=== PATIENT | female | born 1975 | race American Indian/Alaskan Native ===

== ENCOUNTER 2017-07-24 04:26 | Inpatient (IN) | payer OTHER ==
[2017-07-24] MEDS ORDERED: Sodium Chloride 0.9% 1,000 ML IV ONE (04:35)
[2017-07-24] MEDS ORDERED: Morphine 2 MG/ML Syringe IVPUSH ONE (04:35)
[2017-07-24] MEDS ORDERED: Ondansetron 4 MG/2 ML SDV IVPUSH ONE (04:37)
--- NOTE | 2017-07-24 04:37 | EDM.PDOC ---
ED HPI GENERAL MEDICAL PROBLEM - General Chief Complaint: Abdominal Pain Stated Complaint: STOMACH PAIN Time Seen by Provider: 07/24/17 04:36 Source of Information: Reports: Patient - History of Present Illness INITIAL COMMENTS - FREE TEXT/NARRATIVE: HISTORY AND PHYSICAL: History of present illness: []Patient presents with diffuse abdominal pain she rates 10 out of 10 with a focus in the left lower quadrant no fever nausea vomiting chills sweats but patient is unable to get comfortable she's had 2 mg morphine IV along with 0.5 mg of Dilaudid 2 mg with improvement but still has continued pain Will admit for inpatient treatment of diverticulitis diagnosed on CT or confirmed on CT Review of systems: As per history of present illness and below otherwise all systems reviewed and negative. Past medical history: As per history of present illness and as reviewed below otherwise noncontributory. Surgical history: As per history of present illness and as reviewed below otherwise noncontributory. Social history: No reported history of drug or alcohol abuse. Family history: As per history of present illness and as reviewed below otherwise noncontributory. Physical exam: HEENT: Atraumatic, normocephalic, pupils reactive, negative for conjunctival pallor or scleral icterus, mucous membranes moist, throat clear, neck supple, nontender, trachea midline. Lungs: Clear to auscultation, breath sounds equal bilaterally, chest nontender. Heart: S1S2, regular, negative for clicks, rubs, or JVD. Abdomen: Soft, nondistended, nontender. Negative for masses or hepatosplenomegaly. Negative for costovertebral tenderness. Pelvis: Stable nontender. Genitourinary: Deferred. Rectal: Deferred. Extremities: Atraumatic, negative for cords or calf pain. Neurovascular unremarkable. Neuro: Awake, alert, oriented. Cranial nerves II through XII unremarkable. Cerebellum unremarkable. Motor and sensory unremarkable throughout. Exam nonfocal. Diagnostics: []Lab as below CT abdomen pelvis with Therapeutics: []1 L normal saline bolus Morphine 2 mg IV Zofran 8 mg IV Dilaudid 2 mg IV Cipro 400 mg IV Flagyl 500 mg IV Admit to Dr. Kumar Impression: []Diverticulitis Definitive disposition and diagnosis as appropriate pending reevaluation and review of above. Abdomen Pain Score (Numeric/FACES): 10 - Related Data Allergies Allergy/AdvReac Type Severity Reaction Status Date / Time No Known Allergies Allergy Verified 07/24/17 04:37 Home Meds: Home Meds . [No Known Home Meds] 07/24/17 [History] ED ROS GENERAL - Review of Systems Review Of Systems: ROS reveals no pertinent complaints other than HPI. ED EXAM, GENERAL - Physical Exam Exam: See Below Course - Vital Signs Last Recorded V/S: Last Vital Signs Temp 36.6 C 07/24/17 04:30 Pulse 76 07/24/17 04:30 Resp 18 07/24/17 04:30 BP 126/68 07/24/17 04:30 Pulse Ox 98 07/24/17 04:30 - Orders/Labs/Meds Orders: Active Orders 24 hr Category Date Time Status Abdomen Pelvis w wo Cont [CT] Stat Exams 07/24/17 04:35 Taken Labs: Laboratory Tests 07/24/17 07/24/17 07/24/17 Range/Units 04:30 04:30 04:30 WBC 12.92 H (4.0-11.0) K/uL RBC 4.53 (4.30-5.90) M/uL Hgb 14.4 (12.0-16.0) g/dL Hct 39.6 (36.0-46.0) % MCV 87.4 (80.0-98.0) fL MCH 31.8 (27.0-32.0) pg MCHC 36.4 (31.0-37.0) g/dL RDW Std Deviation 39.6 (28.0-62.0) fl RDW Coeff of Nessa 12 (11.0-15.0) % Plt Count 276 (150-400) K/uL MPV 10.40 (7.40-12.00) fL Neut % (Auto) 73.0 (48.0-80.0) % Lymph % (Auto) 19.0 (16.0-40.0) % [place] % (Auto) 7.3 (0.0-15.0) % Eos % (Auto) 0.5 (0.0-7.0) % Baso % (Auto) 0.2 (0.0-1.5) % Neut # (Auto) 9.4 H (1.4-5.7) K/uL Lymph # (Auto) 2.5 H (0.6-2.4) K/uL [place] # (Auto) 0.9 H (0.0-0.8) K/uL Eos # (Auto) 0.1 (0.0-0.7) K/uL Baso # (Auto) 0.0 (0.0-0.1) K/uL Nucleated RBC % 0.0 /100WBC Nucleated RBCs # 0 K/uL Sodium 140 (136-146) mmol/L Potassium 3.8 (3.5-5.1) mmol/L Chloride 111 H (98-110) mmol/L Carbon Dioxide 18 L (21-31) mmol/L BUN 10 (6.0-23.0) mg/dL Creatinine 0.8 (0.6-1.5) mg/dL Est Cr Clr Drug Dosing 90.53 mL/min Estimated GFR (MDRD) > 60.0 ml/min Glucose 94 (60-110) mg/dL Calcium 9.6 (8.8-10.8) mg/dL Total Bilirubin 0.9 (0.1-1.5) mg/dL AST 19 (5-40) IU/L ALT 28 (8-54) IU/L Alkaline Phosphatase 80 (40-150) Troponin I < 0.10 (0.0-0.29) NG/ML Total Protein 7.0 (6.0-8.0) g/dL Albumin 3.8 (3.5-5.0) g/dL Globulin 3.2 (2.0-3.5) g/dL Albumin/Globulin Ratio 1.2 L (1.3-2.8) Amylase 104 H (10-90) U/L Lipase 12 (7-80) U/L Urine Color Urine Appearance Urine pH (5.0-8.0) Ur Specific [place] (1.001-1.035) Urine Protein (NEGATIVE) mg/dL Urine Glucose (UA) (NEGATIVE) mg/dL Urine Ketones (NEGATIVE) mg/dL Urine Occult Blood (NEGATIVE) Urine Nitrite (NEGATIVE) Urine Bilirubin (NEGATIVE) Urine Urobilinogen (<2.0) EU/dL Ur Leukocyte Esterase (NEGATIVE) Urine RBC (0-2/HPF) Urine WBC (0-5/HPF) Ur Epithelial Cells (NONE-FEW) Urine Bacteria (NEGATIVE) 10/04/17 Range/Units 05:10 WBC (4.0-11.0) K/uL RBC (4.30-5.90) M/uL Hgb (12.0-16.0) g/dL Hct (36.0-46.0) % MCV (80.0-98.0) fL MCH (27.0-32.0) pg MCHC (31.0-37.0) g/dL RDW Std Deviation (28.0-62.0) fl RDW Coeff of [place] (11.0-15.0) % Plt Count (150-400) K/uL MPV (7.40-12.00) fL Neut % (Auto) (48.0-80.0) % Lymph % (Auto) (16.0-40.0) % [place] % (Auto) (0.0-15.0) % Eos % (Auto) (0.0-7.0) % Baso % (Auto) (0.0-1.5) % Neut # (Auto) (1.4-5.7) K/uL Lymph # (Auto) (0.6-2.4) K/uL [place] # (Auto) (0.0-0.8) K/uL Eos # (Auto) (0.0-0.7) K/uL Baso # (Auto) (0.0-0.1) K/uL Nucleated RBC % /100WBC Nucleated RBCs # K/uL Sodium (136-146) mmol/L Potassium (3.5-5.1) mmol/L Chloride (98-110) mmol/L Carbon Dioxide (21-31) mmol/L BUN (6.0-23.0) mg/dL Creatinine (0.6-1.5) mg/dL Est Cr Clr Drug Dosing mL/min Estimated GFR (MDRD) ml/min Glucose (60-110) mg/dL Calcium (8.8-10.8) mg/dL Total Bilirubin (0.1-1.5) mg/dL AST (5-40) IU/L ALT (8-54) IU/L Alkaline Phosphatase (40-150) Troponin I (0.0-0.29) NG/ML Total Protein (6.0-8.0) g/dL Albumin (3.5-5.0) g/dL Globulin (2.0-3.5) g/dL Albumin/Globulin Ratio (1.3-2.8) Amylase (10-90) U/L Lipase (7-80) U/L Urine Color YELLOW Urine Appearance CLEAR Urine pH 8.0 (5.0-8.0) Ur Specific [place] 1.010 (1.001-1.035) Urine Protein NEGATIVE (NEGATIVE) mg/dL Urine Glucose (UA) NEGATIVE (NEGATIVE) mg/dL Urine Ketones NEGATIVE (NEGATIVE) mg/dL Urine Occult Blood NEGATIVE (NEGATIVE) Urine Nitrite NEGATIVE (NEGATIVE) Urine Bilirubin NEGATIVE (NEGATIVE) Urine Urobilinogen 0.2 (<2.0) EU/dL Ur Leukocyte Esterase NEGATIVE (NEGATIVE) Urine RBC 0-1 (0-2/HPF) Urine WBC 0-2 (0-5/HPF) Ur Epithelial Cells FEW (NONE-FEW) Urine Bacteria FEW (NEGATIVE) Meds: Medications Discontinued Medications Generic Name Dose Route Start Last Admin Trade Name Freq PRN Reason Stop Dose Admin Hydromorphone HCl 0.5 mg 07/24/17 04:52 07/24/17 04:58 Dilaudid IM 07/24/17 04:53 0.5 mg ONETIME ONE Administration Hydromorphone HCl 0.5 mg 07/24/17 05:34 07/24/17 05:37 Dilaudid IVPUSH 07/24/17 05:35 0.5 mg ONETIME ONE Administration Hydromorphone HCl 1 mg 07/24/17 06:25 07/24/17 06:30 Dilaudid IVPUSH 07/24/17 06:26 1 mg ONETIME ONE Administration Sodium Chloride 1,000 mls @ 999 mls/hr 07/24/17 04:35 07/24/17 04:40 Normal Saline IV 07/24/17 05:35 999 mls/hr STAT ONE Administration Iopamidol 100 ml 07/24/17 05:03 07/24/17 05:33 Isovue Multipack-370 (76%) IVPUSH 07/24/17 05:04 100 ml ONETIME STA Administration Morphine Sulfate 2 mg 07/24/17 04:35 07/24/17 04:40 Morphine IVPUSH 07/24/17 04:36 2 mg ONETIME ONE Administration Ondansetron HCl 8 mg 07/24/17 04:37 07/24/17 04:46 Zofran IVPUSH 07/24/17 04:38 8 mg ONETIME ONE Administration Departure - Departure Time of Disposition: 06:31 Disposition: Admitted As Inpatient 64 Condition: Fair Clinical Impression: Diverticulitis - Discharge Information Referrals: PCP,None [Primary Care Provider] - Forms: ED Department Discharge - My Orders Last 24 Hours: My Active Orders 07/24/17 04:35 Abdomen Pelvis w wo Cont [CT] Stat - Assessment/Plan Last 24 Hours: My Active Orders 07/24/17 04:35 Abdomen Pelvis w wo Cont [CT] Stat
[2017-07-24] MEDS ORDERED: HYDROmorphone 1 MG/ML Syringe IM ONE (04:52)
[2017-07-24] MEDS ORDERED: Iopamidol 755 MG/ML 500 ML Multipack Bottle IVPUSH STA (05:03)
[2017-07-24 05:26] LABS: CHLORIDE,CL 111 mmol/L (98-110); SODIUM,NA 140 mmol/L (136-146)
[2017-07-24] MEDS ORDERED: HYDROmorphone 1 MG/ML Syringe IVPUSH ONE ×2 (05:34→06:25)
[2017-07-24] MEDS ORDERED: metroNIDAZOLE/Normal Saline 500 MG in Premix Bag 1 BAG IV ONE (06:33)
[2017-07-24] MEDS: Sodium Chloride 0.9% 1,000 ML IV SCH ×2 (06:37→17:35)
[2017-07-24] MEDS ORDERED: Ciprofloxacin in D5W 400 MG in Premix Bag 1 BAG IV SCH ×4 (06:45→18:00)
[2017-07-24] MEDS: HYDROmorphone 2 MG/ML Syringe IVPUSH PRN ×2 (09:40→12:22)
--- NOTE | 2017-07-24 09:54 | PCM.HP ---
H&P History of Present Illness - General Date of Service: 07/24/17 Admit Problem/Dx: Admission Diagnosis/Problem Admission Diagnosis/Problem Diverticulitis Source of Information: Patient History Limitations: Reports: No Limitations - History of Present Illness Initial Comments - Free Text/Narative: This 42 year old female with little pmh presented to the ED with a 3 day history of abdominal pain, which worsened significantly overnight. She reports she has been having some cramping pain for 6 months or so but recently this worsened. She describes this pain as cramping and sharp to lower abdomen. She denies fevers at home, no dyspnea or chest pain. No black or bloody BMs, no change in bowel habits and no urinary symptoms. She denies having history of diverticulosis, but knows family members have it. She has never had a colonoscopy. She does smoke 1/2 ppd, denies alcohol use or recreational drug use. In the ED leukocytosis noted at 12,920, amlyase 104, lipase 12. Ua negative. She was afebrile with stable VS. Abd/pelvis CT revealed sigmoid diverticulitis no perforation note.d. She was treated with pain medications along with Flagyl and Ciprofloxacin. She was admitted for diverticulitis. Abdomen Pain Score (Numeric/FACES): 8 - Related Data Allergies/Adverse Reactions: Allergies Allergy/AdvReac Type Severity Reaction Status Date / Time No Known Allergies Allergy Verified 07/24/17 04:37 Home Medications: Home Meds . [No Known Home Meds] 07/24/17 [History] Past Medical History HEENT History: Reports: None Cardiovascular History: Reports: None. Denies: Afib, Blood Clots/VTE/DVT, CAD, High Cholesterol, Hypertension, [place] Respiratory History: Reports: None. Denies: COPD, PE Gastrointestinal History: Reports: None. Denies: GERD, GI Bleed Genitourinary History: Reports: None. 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: , Other (See Below) Other OB/BYN History: hx of cervical precancerous cells Musculoskeletal History: Reports: None Neurological History: Reports: None Psychiatric History: Reports: None Endocrine/Metabolic History: Reports: None, Obesity/BMI 30+ Hematologic History: Reports: None Immunologic History: Reports: None Oncologic (Cancer) History: Reports: None Dermatologic History: Reports: None - Infectious Disease History Infectious Disease History: Reports: Chicken Pox - Past Surgical History Head Surgeries/Procedures: Reports: None HEENT Surgical History: Reports: LASIK Social & Family History - Family History Family Medical History: Noncontributory - Tobacco Use Smoking Status *Q: Current Every Day Smoker Years of Tobacco use: 25 Packs/Tins Daily: 0.5 Second Hand Smoke Exposure: Yes - Caffeine Use Caffeine Use: Reports: Coffee - Recreational Drug Use Recreational Drug Use: No - Living Situation & Occupation Living situation: Reports: Occupation: Employed H&P Review of Systems - Review of Systems: Review Of Systems: See Below General: Reports: No Symptoms. Denies: Fever, Chills, Malaise Pulmonary: Reports: No Symptoms. Denies: Shortness of Breath Cardiovascular: Reports: No Symptoms. Denies: Chest Pain Gastrointestinal: Reports: Abdominal Pain, Distension, Flatus, Nausea. Denies: Black Stool, Bloody Stool, Constipation, Diarrhea, Stool Incontinence, Vomiting Genitourinary: Reports: No Symptoms. Denies: Dysuria, Frequency, Burning, Urgency Musculoskeletal: Reports: No Symptoms. Denies: Neck Pain Skin: Reports: No Symptoms Psychiatric: Reports: No Symptoms. Denies: Confusion Exam - Exam Exam: See Below - Vital Signs Vital Signs: Last Vital Signs Temp 97.6 F 07/24/17 08:05 Pulse 57 L 07/24/17 08:05 Resp 18 07/24/17 08:05 BP 134/89 07/24/17 08:05 Pulse Ox 100 07/24/17 08:05 Weight: 90 kg - Exam General: Alert, Oriented, Cooperative, Other (Noted to be very uncomfortable and moving in pain. Nurse bringing medication in. ) HEENT: Conjunctiva Clear, Posterior Pharynx Clear, Pupils Reactive. No: Mucosa Moist & [place] (dry) Neck: Supple, Trachea Midline, 2 Lungs: Clear to Auscultation, Normal Respiratory Effort Cardiovascular: Regular Rate, Regular Rhythm GI/Abdominal Exam: Soft, No Distention, No Mass, Tender (lower abdomen R and L) , Abnormal Bowel Sounds (hypoactive) Extremities: Normal Inspection, Normal Range of Motion, Non-Tender, No Pedal Edema, Normal Capillary Refill Neuro Extensive - Mental Status: Alert, Oriented x3, Normal Mood/Affect, Normal Cognition Psychiatric: Alert, Normal Affect, Normal Mood - Patient Data Result Diagrams: 07/24/17 04:30 07/24/17 04:30 *Q Meaningful Use (ADM) - VTE *Q VTE Criteria *Q: - VTE Risk Assess *Q Each Risk Factor Represents 1 Point: Age 41 - 59 years Total Score 1 Point Risk Factors: 1 Each Risk Factor Represents 2 Points: None Total Score 2 Point Risk Factors: 0 Each Risk Factor Represents 3 Points: None Total Score 3 Point Risk Factors: 0 Each Risk Factor Represents 5 Points: None Total Score 5 Point Risk Factors: 0 Venous Thromboembolism Risk Factor Score *Q: 1 - Stroke *Q Stroke Criteria *Q: - AMI *Q AMI Criteria *Q: - Problem List (1) Sigmoid diverticulitis SNOMED Code(s): 069274057 ICD Code: K57.32 - DVTRCLI OF LG INT W/O PERFORATION OR ABSCESS W/O BLEEDING Status: Acute Current Visit: Yes (2) Smoker SNOMED Code(s): 38656643 ICD Code: F17.200 - NICOTINE DEPENDENCE, UNSPECIFIED, UNCOMPLICATED Status : Chronic Current Visit: Yes Problem List Initiated/Reviewed/Updated: Yes Orders Last 24hrs: Active Orders 24 hr Category Date Time Status Intake and Output [RC] QSHIFT Care 07/24/17 09:49 Ordered Oxygen Therapy [RC] PRN Care 07/24/17 09:49 Ordered Up With Assistance [RC] ASDIRECTED Care 07/24/17 09:49 Ordered VTE/DVT Education [RC] PER UNIT ROUTINE Care 07/24/17 09:49 Ordered Vital Signs [RC] Q4H Care 07/24/17 09:49 Ordered Nothing Per Oral Diet [DIET] Diet 07/24/17 Lunch Ordered BASIC METABOLIC PANEL,BMP [CHEM] AM Lab 07/25/17 05:11 Ordered BASIC METABOLIC PANEL,BMP [CHEM] AM Lab 07/26/17 05:11 Ordered BASIC METABOLIC PANEL,BMP [CHEM] AM Lab 07/27/17 05:11 Ordered CBC WITH AUTO DIFF [HEME] AM Lab 07/25/17 05:11 Ordered CBC WITH AUTO DIFF [HEME] AM Lab 07/26/17 05:11 Ordered CBC WITH AUTO DIFF [HEME] AM Lab 07/27/17 05:11 Ordered Ciprofloxacin in D5W [Cipro in D5W 400 MG/200 ML] 400 Med 07/24/17 18:00 Ordered mg Premix Bag 1 bag IV Q12H Enoxaparin [Lovenox] Med 07/24/17 10:00 Ordered 40 mg SUBCUT DAILY HYDROmorphone [Dilaudid] Med 07/24/17 09:32 Ordered 1 mg IVPUSH Q2H PRN Ondansetron [Zofran] Med 07/24/17 09:49 Ordered 4 mg IVPUSH Q4H PRN metroNIDAZOLE/Normal Saline [Flagyl 500 MG in NS 100 ML Med 07/24/17 12:00 Ordered ] 500 mg Premix Bag 1 bag IV QID Resuscitation Status Routine Resus Stat 07/24/17 09:49 Ordered Medication Orders Enoxaparin Sodium (Lovenox) 40 mg SUBCUT DAILY FELECIA Hydromorphone HCl (Dilaudid) 1 mg IVPUSH Q2H PRN PRN Reason: Pain Last Admin: 07/24/17 09:40 Dose: 1 mg Sodium Chloride (Normal Saline) 1,000 mls @ 125 mls/hr IV STAT FELECIA Last Admin: 07/24/17 06:37 Dose: 125 mls/hr Ciprofloxacin/Dextrose 400 mg/ (Premix) 200 mls @ 200 mls/hr IV Q12H FELECIA Metronidazole 500 mg/ Premix 100 mls @ 100 mls/hr IV QID FELECIA Ondansetron HCl (Zofran) 4 mg IVPUSH Q4H PRN PRN Reason: Nausea Assessment/Plan Comment:: This 42 year olf female admitted with sigmoid diverticulitis 1. Sigmoid diverticulitis: Continue IVFs along with Ciprofloxacin and Flagyl. IV analgesia and anti-emetics. Will place on bowel rest, ice chips ok. 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 VTE prophylaxis: Lovenox. Dispo: 2-3 days pending improvement.
[2017-07-24] MEDS: Enoxaparin 40 MG/0.4 ML Syringe SUBCUT SCH (10:30)
[2017-07-24] MEDS ORDERED: Morphine 4 MG/ML Syringe IVPUSH ONE (10:35)
--- NOTE | 2017-07-24 11:03 | CT ---
EXAM DATE: 07/24/17 PATIENT'S AGE: 42 Patient: KAYLEY REA Facility: [place], [place] Site . Site : 1975 Study: CT Abdomen/Pelvis [id number]/4/2017 6:03:33 AM Ordering Physician: Doctor Franks Final Report: INDICATION: SEVERE MID/LOWER ABD PAIN JENARO N/V HISTORY: Lower abdominal pain. Evaluate etiology. COMPARISON: None. TECHNIQUE: CT of the abdomen and pelvis without and with intravenous contrast. 100 cc of Isovue-370 IV. Coronal/sagittal reconstruction images. FINDINGS: Lung bases: There is no pleural or pericardial effusion. The heart size is normal. The lung bases demonstrate no acute airspace disease. There is no basilar pneumothorax. Abdomen/pelvis: No solid hepatic mass. No intrahepatic biliary dilatation. No perihepatic ascites. Spleen size is normal. No adrenal mass. No hydronephrosis. No perinephric edema. No pancreatic mass or pancreatic duct dilation. No glandular atrophy. The noncontrast images demonstrate no calculi in either intrarenal collecting system. Multiple calcifications in the pelvis are compatible with phleboliths. Urinary bladder is normal. Follicular cysts in the left ovary. These are physiologic findings. There is mild fat stranding present about the sigmoid colon. Sigmoid diverticulitis is suspected. This is seen best on image 111, series 301. No small bowel or colonic obstruction. No findings to indicate acute appendicitis. No abdominal aortic aneurysm. Visceral artery branches are patent. No abdominal or pelvic lymphadenopathy by size criteria. The bone windows demonstrate no suspicious lytic or blastic bone lesions. The alignment is preserved. IMPRESSION: 1. Sigmoid diverticulitis. 2. No drainable fluid collection. After symptoms resolve, consider optical colonoscopy to exclude an underlying mass. 3. Small follicular cysts in the left ovary. These are physiologic findings in a patient of this age. 4. No abdominal/pelvic lymphadenopathy. Dictated by Fredy Vanegas MD @ 07/24/2017 6:21:09 AM Dictated by: Fredy Vanegas MD @ 07/24/2017 06:21:23 (Electronic Signature) Report Signed by Proxy. [facility]
[2017-07-24] MEDS: metroNIDAZOLE/Normal Saline 500 MG in Premix Bag 1 BAG IV SCH ×3 (12:04→23:26)
[2017-07-24] MEDS: Morphine 4 MG/ML Syringe IVPUSH PRN ×5 (14:23→19:49)
[2017-07-24] MEDS: Ciprofloxacin in D5W 400 MG in Premix Bag 1 BAG IV SCH ×2 (19:53)
[2017-07-24] MEDS: Morphine PF 30 MG/30 ML PCA Vial IV SCH (20:47)
[2017-07-24] MEDS: Ondansetron 4 MG/2 ML SDV IVPUSH PRN (20:47)
[2017-07-25] MEDS: Morphine PF 30 MG/30 ML PCA Vial IV SCH ×3 (01:10→23:33)
[2017-07-25] MEDS: Ondansetron 4 MG/2 ML SDV IVPUSH PRN ×5 (01:20→18:10)
[2017-07-25] MEDS: Sodium Chloride 0.9% 1,000 ML IV SCH ×3 (05:00→23:25)
[2017-07-25] MEDS: metroNIDAZOLE/Normal Saline 500 MG in Premix Bag 1 BAG IV SCH ×4 (05:43→23:39)
[2017-07-25 06:14] LABS: CHLORIDE,CL 110 mmol/L (98-110); SODIUM,NA 140 mmol/L (136-146)
--- NOTE | 2017-07-25 07:48 | PCM.PN ---
- General Info Date of Service: 07/25/17 Admission Dx/Problem (Free Text): Admission Diagnosis/Problem Admission Diagnosis/Problem Diverticulitis Subjective Update: Continues to have pain to lower abdomen. ACCOUNT COLLECTOR started last evening, she reports it is helping to keep the pain tolerable at a 5-6/10. Having some nausea when hitting the ACCOUNT COLLECTOR button consistently, so she has cut back which has helped. Passing flatus. No stool. Denies chest pain or SOB. feeling somewhat improved. Functional Status: Reports: Pain Controlled, Ambulating, Urinating - Review of Systems General: Reports: No Symptoms. Denies: Fever Pulmonary: Reports: No Symptoms. Denies: Shortness of Breath Cardiovascular: Reports: No Symptoms. Denies: Chest Pain Gastrointestinal: Reports: Abdominal Pain, Decreased Appetite, Flatus, Nausea. Denies: Difficulty Swallowing, Vomiting Genitourinary: Reports: No Symptoms. Denies: Dysuria, Frequency, Burning Musculoskeletal: Reports: No Symptoms. Denies: Neck Pain Psychiatric: Reports: No Symptoms - Patient Data Vitals - Most Recent: Last Vital Signs Temp 98.3 F 07/25/17 04:00 Pulse 59 L 07/25/17 04:00 Resp 16 07/25/17 04:00 BP 100/56 L 07/25/17 04:00 Pulse Ox 100 07/25/17 04:00 Weight - Most Recent: 90 kg I&O - Last 24 Hours: Intake & Output 07/24/17 07/25/17 07/25/17 22:59 06:59 14:59 Intake Total 1162 1199 Balance 1162 1199 Lab Results Last 24 Hours: Laboratory Results - last 24 hr 07/25/17 07/25/17 Range/Units 05:16 05:16 WBC 11.25 H (4.0-11.0) K/uL RBC 3.69 L (4.30-5.90) M/uL Hgb 11.6 L (12.0-16.0) g/dL Hct 33.3 L (36.0-46.0) % MCV 90.2 (80.0-98.0) fL MCH 31.4 (27.0-32.0) pg MCHC 34.8 (31.0-37.0) g/dL RDW Std Deviation 41.1 (28.0-62.0) fl RDW Coeff of Nessa 13 (11.0-15.0) % Plt Count 203 (150-400) K/uL MPV 10.30 (7.40-12.00) fL Neut % (Auto) 79.4 (48.0-80.0) % Lymph % (Auto) 11.6 L (16.0-40.0) % [place] % (Auto) 8.6 (0.0-15.0) % Eos % (Auto) 0.3 (0.0-7.0) % Baso % (Auto) 0.1 (0.0-1.5) % Neut # (Auto) 8.9 H (1.4-5.7) K/uL Lymph # (Auto) 1.3 (0.6-2.4) K/uL [place] # (Auto) 1.0 H (0.0-0.8) K/uL Eos # (Auto) 0.0 (0.0-0.7) K/uL Baso # (Auto) 0.0 (0.0-0.1) K/uL Nucleated RBC % 0.0 /100WBC Nucleated RBCs # 0 K/uL Sodium 140 (136-146) mmol/L Potassium 4.0 (3.5-5.1) mmol/L Chloride 110 (98-110) mmol/L Carbon Dioxide 22 (21-31) mmol/L BUN 6 (6.0-23.0) mg/dL Creatinine 0.7 (0.6-1.5) mg/dL Est Cr Clr Drug Dosing 103.46 mL/min Estimated GFR (MDRD) > 60.0 ml/min Glucose 89 (60-110) mg/dL Calcium 8.4 L (8.8-10.8) mg/dL Soren Results Last 24 Hours: Microbiology 07/24/17 06:55 Aerobic Blood Culture - Preliminary Blood - Venous - Lab Draw NO GROWTH AFTER 1 DAY Anaerobic Blood Culture - Preliminary NO GROWTH AFTER 1 DAY Med Orders - Current: Current Medications Enoxaparin Sodium (Lovenox) 40 mg SUBCUT DAILY [facility] Last Admin: 07/24/17 10:30 Dose: 40 mg Sodium Chloride (Normal Saline) 1,000 mls @ 125 mls/hr IV STAT [facility] Last Admin: 07/25/17 05:00 Dose: 125 mls/hr Metronidazole 500 mg/ Premix 100 mls @ 100 mls/hr IV QID [facility] Last Admin: 07/25/17 05:43 Dose: 100 mls/hr Ciprofloxacin/Dextrose 400 mg/ (Premix) 200 mls @ 200 mls/hr IV Q12H [facility] Last Admin: 07/24/17 19:53 Dose: 200 mls/hr Morphine Sulfate (Morphine Plastics Process Hand 30 Mg In 30 Ml) 30 mg IV ASDIRECTED FELECIA PRN Reason: Protocol Last Admin: 07/25/17 01:10 Dose: 30 mg Ondansetron HCl (Zofran) 4 mg IVPUSH Q4H PRN PRN Reason: Nausea Last Admin: 07/25/17 05:43 Dose: 4 mg Discontinued Medications Hydromorphone HCl (Dilaudid) 0.5 mg IM ONETIME ONE Stop: 07/24/17 04:53 Last Admin: 07/24/17 04:58 Dose: 0.5 mg Hydromorphone HCl (Dilaudid) 0.5 mg IVPUSH ONETIME ONE Stop: 07/24/17 05:35 Last Admin: 07/24/17 05:37 Dose: 0.5 mg Hydromorphone HCl (Dilaudid) 1 mg IVPUSH ONETIME ONE Stop: 07/24/17 06:26 Last Admin: 07/24/17 06:30 Dose: 1 mg Hydromorphone HCl (Dilaudid) 1 mg IVPUSH Q2H PRN PRN Reason: Pain Last Admin: 07/24/17 12:22 Dose: 1 mg Sodium Chloride (Normal Saline) 1,000 mls @ 999 mls/hr IV STAT ONE Stop: 07/24/17 05:35 Last Admin: 07/24/17 04:40 Dose: 999 mls/hr Ciprofloxacin/Dextrose 400 mg/ (Premix) 200 mls @ 200 mls/hr IV Q12H [facility] Last Admin: 07/24/17 08:23 Dose: 200 mls/hr Metronidazole 500 mg/ Premix 100 mls @ 100 mls/hr IV ONETIME ONE Stop: 07/24/17 07:32 Last Admin: 07/24/17 06:57 Dose: 100 mls/hr Ciprofloxacin/Dextrose 400 mg/ (Premix) 200 mls @ 200 mls/hr IV Q12H [facility] Iopamidol (Isovue Multipack-370 (76%)) 100 ml IVPUSH ONETIME STA Stop: 07/24/17 05:04 Last Admin: 07/24/17 05:33 Dose: 100 ml Morphine Sulfate (Morphine) 2 mg IVPUSH ONETIME ONE Stop: 07/24/17 04:36 Last Admin: 07/24/17 04:40 Dose: 2 mg Morphine Sulfate (Morphine) 4 mg IVPUSH ONETIME ONE Stop: 07/24/17 10:36 Last Admin: 07/24/17 10:50 Dose: 4 mg Morphine Sulfate (Morphine) 4 mg IVPUSH Q2H PRN PRN Reason: Pain Last Admin: 07/24/17 16:24 Dose: 4 mg Morphine Sulfate (Morphine) 4 mg IVPUSH Q1H PRN PRN Reason: Pain Last Admin: 07/24/17 19:49 Dose: 4 mg Ondansetron HCl (Zofran) 8 mg IVPUSH ONETIME ONE Stop: 07/24/17 04:38 Last Admin: 07/24/17 04:46 Dose: 8 mg - Exam General: Alert, Oriented, Cooperative, No Acute Distress Neck: Supple Lungs: Clear to Auscultation, Normal Respiratory Effort Cardiovascular: Regular Rate, Regular Rhythm GI/Abdominal Exam: Soft, No Distention, No Mass, Tender (lower abdominal tenderness.), Abnormal Bowel Sounds (hypoactive) Extremities: Normal Inspection, Normal Range of Motion, Non-Tender, No Pedal Edema, Normal Capillary Refill Psy/Mental Status: Alert, Normal Affect, Normal Mood - Problem List & Annotations (1) Sigmoid diverticulitis SNOMED Code(s): 712077778 Code(s): K57.32 - DVTRCLI OF LG INT W/O PERFORATION OR ABSCESS W/O BLEEDING Status: Acute Current Visit: Yes (2) Smoker SNOMED Code(s): 70868585 Code(s): F17.200 - NICOTINE DEPENDENCE, UNSPECIFIED, UNCOMPLICATED Status: Chronic Current Visit: Yes - Problem List Review Problem List Initiated/Reviewed/Updated: Yes - My Orders Last 24 Hours: My Active Orders 07/24/17 09:49 Intake and Output [RC] Q12H Oxygen Therapy [RC] PRN Up With Assistance [RC] ASDIRECTED VTE/DVT Education [RC] PER UNIT ROUTINE Vital Signs [RC] Q4H Ondansetron [Zofran] 4 mg IVPUSH Q4H PRN Resuscitation Status Routine 07/24/17 10:00 Enoxaparin [Lovenox] 40 mg SUBCUT DAILY 07/24/17 12:00 metroNIDAZOLE/Normal Saline [Flagyl 500 MG in NS 100 ML] 500 mg Premix Bag 1 bag IV QID 07/24/17 20:00 Ciprofloxacin in D5W [Cipro in D5W 400 MG/200 ML] 400 mg Premix Bag 1 bag IV Q12H 07/24/17 Lunch Nothing Per Oral Diet [DIET] 07/26/17 05:11 BASIC METABOLIC PANEL,BMP [CHEM] AM CBC WITH AUTO DIFF [HEME] AM 07/27/17 05:11 BASIC METABOLIC PANEL,BMP [CHEM] AM CBC WITH AUTO DIFF [HEME] AM - Plan Plan:: This 42 year olf female admitted with sigmoid diverticulitis 1. Sigmoid diverticulitis: Slow improvement, leukocytosis improved overnight. Continue IVFs along with Ciprofloxacin and Flagyl. IV analgesia and anti- emetics. Continue bowel rest, ice chips ok. Morphine ACCOUNT COLLECTOR in place, will continue this and monitor VTE prophylaxis: Lovenox. Dispo: 2-3 days pending improvement.
[2017-07-25] MEDS: Ciprofloxacin in D5W 400 MG in Premix Bag 1 BAG IV SCH ×4 (08:11→20:19)
[2017-07-25] MEDS: Enoxaparin 40 MG/0.4 ML Syringe SUBCUT SCH (08:17)
[2017-07-26] MEDS: Ondansetron 4 MG/2 ML SDV IVPUSH PRN ×4 (05:06→19:44)
[2017-07-26] MEDS: metroNIDAZOLE/Normal Saline 500 MG in Premix Bag 1 BAG IV SCH ×3 (05:06→17:12)
[2017-07-26 06:12] LABS: CHLORIDE,CL 111 mmol/L (98-110); SODIUM,NA 138 mmol/L (136-146)
[2017-07-26] MEDS: Sodium Chloride 0.9% 1,000 ML IV SCH ×2 (07:13→17:10)
[2017-07-26] MEDS: Ciprofloxacin in D5W 400 MG in Premix Bag 1 BAG IV SCH ×4 (07:27→19:47)
[2017-07-26] MEDS: Enoxaparin 40 MG/0.4 ML Syringe SUBCUT SCH (08:34)
--- NOTE | 2017-07-26 08:58 | PCM.PN ---
- General Info Date of Service: 07/26/17 Admission Dx/Problem (Free Text): Admission Diagnosis/Problem Admission Diagnosis/Problem Diverticulitis Subjective Update: Patient sitting up in chair, looks more alert and in less pain this morning. Reports pain 5/10 but tolerable. Still not feeling very hungry. Passing scant flatus. NO chest pain or SOB. Afebrile. Functional Status: Reports: Pain Controlled, Ambulating, Urinating - Review of Systems General: Reports: No Symptoms. Denies: Fever Pulmonary: Reports: No Symptoms. Denies: Shortness of Breath Cardiovascular: Reports: No Symptoms. Denies: Chest Pain Gastrointestinal: Reports: Abdominal Pain (lower abdomen), Flatus. Denies: Diarrhea, Nausea, Vomiting Genitourinary: Reports: No Symptoms. Denies: Burning Neurological: Reports: No Symptoms - Patient Data Vitals - Most Recent: Last Vital Signs Temp 98.1 F 07/26/17 08:00 Pulse 52 L 07/26/17 08:00 Resp 22 H 07/26/17 08:00 BP 134/70 07/26/17 08:00 Pulse Ox 98 07/26/17 08:00 Weight - Most Recent: 90 kg I&O - Last 24 Hours: Intake & Output 07/25/17 07/26/17 07/26/17 22:59 06:59 14:59 Intake Total 7652 624 6116 Output Total 650 1020 Balance 790 -910 1299 Lab Results Last 24 Hours: Laboratory Results - last 24 hr 07/26/17 07/26/17 Range/Units 05:09 05:09 WBC 7.48 (4.0-11.0) K/uL RBC 3.55 L (4.30-5.90) M/uL Hgb 11.0 L (12.0-16.0) g/dL Hct 32.0 L (36.0-46.0) % MCV 90.1 (80.0-98.0) fL MCH 31.0 (27.0-32.0) pg MCHC 34.4 (31.0-37.0) g/dL RDW Std Deviation 40.8 (28.0-62.0) fl RDW Coeff of Nessa 13 (11.0-15.0) % Plt Count 195 (150-400) K/uL MPV 10.50 (7.40-12.00) fL Neut % (Auto) 69.8 (48.0-80.0) % Lymph % (Auto) 22.1 (16.0-40.0) % [place] % (Auto) 8.0 (0.0-15.0) % Eos % (Auto) 0.1 (0.0-7.0) % Baso % (Auto) 0.0 (0.0-1.5) % Neut # (Auto) 5.2 (1.4-5.7) K/uL Lymph # (Auto) 1.7 (0.6-2.4) K/uL [place] # (Auto) 0.6 (0.0-0.8) K/uL Eos # (Auto) 0.0 (0.0-0.7) K/uL Baso # (Auto) 0.0 (0.0-0.1) K/uL Nucleated RBC % 0.0 /100WBC Nucleated RBCs # 0 K/uL Sodium 138 (136-146) mmol/L Potassium 3.8 (3.5-5.1) mmol/L Chloride 111 H (98-110) mmol/L Carbon Dioxide 20 L (21-31) mmol/L BUN 7 (6.0-23.0) mg/dL Creatinine 0.7 (0.6-1.5) mg/dL Est Cr Clr Drug Dosing 103.46 mL/min Estimated GFR (MDRD) > 60.0 ml/min Glucose 75 (60-110) mg/dL Calcium 8.7 L (8.8-10.8) mg/dL Soren Results Last 24 Hours: Microbiology 07/24/17 06:55 Aerobic Blood Culture - Preliminary Blood - Venous - Lab Draw NO GROWTH AFTER 2 DAYS Anaerobic Blood Culture - Preliminary NO GROWTH AFTER 2 DAYS Med Orders - Current: Current Medications Enoxaparin Sodium (Lovenox) 40 mg SUBCUT DAILY [facility] Last Admin: 07/26/17 08:34 Dose: 40 mg Sodium Chloride (Normal Saline) 1,000 mls @ 125 mls/hr IV STAT [facility] Last Admin: 07/26/17 07:13 Dose: 125 mls/hr Metronidazole 500 mg/ Premix 100 mls @ 100 mls/hr IV QID [facility] Last Admin: 07/26/17 05:06 Dose: 100 mls/hr Ciprofloxacin/Dextrose 400 mg/ (Premix) 200 mls @ 200 mls/hr IV Q12H [facility] Last Admin: 07/26/17 07:27 Dose: 200 mls/hr Morphine Sulfate (Morphine Human Service Worker 30 Mg In 30 Ml) 30 mg IV ASDIRECTED [facility]LEC[facility] PRN Reason: Protocol Last Admin: 07/25/17 23:33 Dose: 30 mg Ondansetron HCl (Zofran) 4 mg IVPUSH Q4H PRN PRN Reason: Nausea Last Admin: 07/26/17 05:06 Dose: 4 mg Discontinued Medications Hydromorphone HCl (Dilaudid) 0.5 mg IM ONETIME ONE Stop: 07/24/17 04:53 Last Admin: 07/24/17 04:58 Dose: 0.5 mg Hydromorphone HCl (Dilaudid) 0.5 mg IVPUSH ONETIME ONE Stop: 07/24/17 05:35 Last Admin: 07/24/17 05:37 Dose: 0.5 mg Hydromorphone HCl (Dilaudid) 1 mg IVPUSH ONETIME ONE Stop: 07/24/17 06:26 Last Admin: 07/24/17 06:30 Dose: 1 mg Hydromorphone HCl (Dilaudid) 1 mg IVPUSH Q2H PRN PRN Reason: Pain Last Admin: 07/24/17 12:22 Dose: 1 mg Sodium Chloride (Normal Saline) 1,000 mls @ 999 mls/hr IV STAT ONE Stop: 07/24/17 05:35 Last Admin: 07/24/17 04:40 Dose: 999 mls/hr Ciprofloxacin/Dextrose 400 mg/ (Premix) 200 mls @ 200 mls/hr IV Q12H [facility] Last Admin: 07/24/17 08:23 Dose: 200 mls/hr Metronidazole 500 mg/ Premix 100 mls @ 100 mls/hr IV ONETIME ONE Stop: 07/24/17 07:32 Last Admin: 07/24/17 06:57 Dose: 100 mls/hr Ciprofloxacin/Dextrose 400 mg/ (Premix) 200 mls @ 200 mls/hr IV Q12H [facility] Iopamidol (Isovue Multipack-370 (76%)) 100 ml IVPUSH ONETIME STA Stop: 07/24/17 05:04 Last Admin: 07/24/17 05:33 Dose: 100 ml Morphine Sulfate (Morphine) 2 mg IVPUSH ONETIME ONE Stop: 07/24/17 04:36 Last Admin: 07/24/17 04:40 Dose: 2 mg Morphine Sulfate (Morphine) 4 mg IVPUSH ONETIME ONE Stop: 07/24/17 10:36 Last Admin: 07/24/17 10:50 Dose: 4 mg Morphine Sulfate (Morphine) 4 mg IVPUSH Q2H PRN PRN Reason: Pain Last Admin: 07/24/17 16:24 Dose: 4 mg Morphine Sulfate (Morphine) 4 mg IVPUSH Q1H PRN PRN Reason: Pain Last Admin: 07/24/17 19:49 Dose: 4 mg Ondansetron HCl (Zofran) 8 mg IVPUSH ONETIME ONE Stop: 07/24/17 04:38 Last Admin: 07/24/17 04:46 Dose: 8 mg - Exam Quality Assessment: DVT Prophylaxis General: Alert, Oriented, Cooperative, No Acute Distress Neck: Supple Lungs: Clear to Auscultation, Normal Respiratory Effort Cardiovascular: Regular Rate, Regular Rhythm GI/Abdominal Exam: Normal Bowel Sounds, Soft, No Distention, No Mass, Tender ( lower abdomen L > R). No: Guarding, Rigid Neurological: No New Focal Deficit Psy/Mental Status: Alert, Normal Affect, Normal Mood - Problem List & Annotations (1) Sigmoid diverticulitis SNOMED Code(s): 074963746 Code(s): K57.32 - DVTRCLI OF LG INT W/O PERFORATION OR ABSCESS W/O BLEEDING Status: Acute Current Visit: Yes (2) Smoker SNOMED Code(s): 54097996 Code(s): F17.200 - NICOTINE DEPENDENCE, UNSPECIFIED, UNCOMPLICATED Status: Chronic Current Visit: Yes - Problem List Review Problem List Initiated/Reviewed/Updated: Yes - My Orders Last 24 Hours: My Active Orders 07/27/17 05:11 BASIC METABOLIC PANEL,BMP [CHEM] AM CBC WITH AUTO DIFF [HEME] AM - Plan Plan:: This 42 year olf female admitted with sigmoid diverticulitis 1. Sigmoid diverticulitis: Leukocytosis resolved. Continue IVFs along with Ciprofloxacin and Flagyl. IV analgesia and anti-emetics. Continue bowel rest, ice chips ok. Morphine MUSIC VIDEO PRODUCER in place, will continue this and monitor. May trial removing MUSIC VIDEO PRODUCER today and if pain is more tolerable consider CL diet. Will need to have colonoscopy once resolved. Will arrange this appointment prior to discharge. VTE prophylaxis: Lovenox. Dispo: 2-3 days pending improvement.
[2017-07-26] MEDS ORDERED: Acetaminophen/HYDROcodone 325-5 MG Tab PO PRN (11:44)
[2017-07-26] MEDS ORDERED: Morphine 2 MG/ML Syringe IVPUSH PRN ×2 (11:45→13:22)
--- NOTE | 2017-07-26 11:50 | PCM.SN ---
- Free Text/Narrative Note: spoke with patient, will discontinue GRAIN DRIER OPERATOR at this time. She would like to try CL diet. I will start [place] for pain and IV morphine is to be used only if pain is severe enough and then diet will be back to NPO. Will continue to monitor.
--- NOTE | 2017-07-26 13:24 | PCM.SN ---
- Free Text/Narrative Note: Patient attempted sips of CL diet, pain increased and started having nausea. Will stop CL diet and continue with IV Morphine and Zofran.
[2017-07-26] MEDS ORDERED: Morphine 4 MG/ML Syringe IVPUSH PRN (13:41)
[2017-07-26] MEDS ORDERED: Morphine PF 30 MG/30 ML PCA Vial IV SCH (14:30)
[2017-07-26] MEDS ORDERED: HYDROmorphone 1 MG/ML Syringe IVPUSH PRN (15:14)
[2017-07-26] MEDS ORDERED: Iopamidol 755 MG/ML 500 ML Multipack Bottle IVPUSH STA (15:51)
--- NOTE | 2017-07-26 16:15 | PCM.CONS ---
H&P History of Present Illness - General Date of Service: 07/26/17 Admit Problem/Dx: Admission Diagnosis/Problem Admission Diagnosis/Problem Diverticulitis Source of Information: Patient, Family History Limitations: Reports: No Limitations - History of Present Illness Onset of Symptoms: Reports: Gradual Symptom Onset Date: 07/24/17 Duration of Symptoms: Reports: Week(s): Location: Reports: Abdomen Quality: Reports: Pressure Severity: Moderate Improves with: Reports: Rest Worsens with: Reports: Eating, Movement Context: Reports: Sick Contact Associated Symptoms: Reports: No Other Symptoms Abdomen Pain Score (Numeric/FACES): 6 - Related Data Allergies/Adverse Reactions: Allergies Allergy/AdvReac Type Severity Reaction Status Date / Time No Known Allergies Allergy Verified 07/24/17 04:37 Home Medications: Home Meds . [No Known Home Meds] 07/24/17 [History] Past Medical History HEENT History: Reports: None Cardiovascular History: Reports: None. Denies: Afib, Blood Clots/VTE/DVT, CAD, High Cholesterol, Hypertension, NE Respiratory History: Reports: None. Denies: COPD, PE Gastrointestinal History: Reports: None. Denies: GERD, GI Bleed Genitourinary History: Reports: None. Denies: Chronic Renal Insuffiency GEOLOGY TECHNICIAN History: Reports: , Other (See Below) Other OB/BYN History: hx of cervical precancerous cells Musculoskeletal History: Reports: None Neurological History: Reports: None Psychiatric History: Reports: None Endocrine/Metabolic History: Reports: None, Obesity/BMI 30+ Hematologic History: Reports: None Immunologic History: Reports: None Oncologic (Cancer) History: Reports: None Dermatologic History: Reports: None - Infectious Disease History Infectious Disease History: Reports: Chicken Pox - Past Surgical History Head Surgeries/Procedures: Reports: None HEENT Surgical History: Reports: CLARKE Social & Family History - Family History Family Medical History: Noncontributory - Tobacco Use Smoking Status *Q: Current Every Day Smoker Years of Tobacco use: 25 Packs/Tins Daily: 0.5 Second Hand Smoke Exposure: Yes - Caffeine Use Caffeine Use: Reports: Coffee - Recreational Drug Use Recreational Drug Use: No - Living Situation & Occupation Living situation: Reports: Occupation: Employed H&P Review of Systems - Review of Systems: Review Of Systems: See Below General: Reports: Decreased Appetite. Denies: Fever, Chills HEENT: Reports: No Symptoms Pulmonary: Denies: Shortness of Breath Cardiovascular: Denies: Chest Pain Gastrointestinal: Reports: Abdominal Pain, Decreased Appetite, Flatus. Denies: Black Stool, Bloody Stool, Constipation, Diarrhea, Distension, Hematochezia, Melena, Stool Incontinence Genitourinary: Reports: No Symptoms Musculoskeletal: Reports: No Symptoms Skin: Reports: No Symptoms Psychiatric: Reports: No Symptoms Neurological: Reports: No Symptoms Hematologic/Lymphatic: Reports: No Symptoms Immunologic: Reports: No Symptoms Exam - Exam Exam: See Below - Vital Signs Vital Signs: Last Vital Signs Temp 97.6 F 07/26/17 15:38 Pulse 63 07/26/17 15:38 Resp 22 H 07/26/17 15:38 BP 121/81 07/26/17 15:38 Pulse Ox 100 07/26/17 15:38 Weight: 198 lb 6.656 oz - Exam General: Alert, Oriented, Moderate Distress HEENT: Conjunctiva Clear, PERRLA Neck: Supple, Trachea Midline Lungs: Clear to Auscultation, Normal Respiratory Effort Cardiovascular: Regular Rate, Regular Rhythm, Normal S1, Normal S2. No: Tachycardia GI/Abdominal Exam: Normal Bowel Sounds, Soft, No Distention, Tender (throughout , especially LLQ). No: Guarding, Rigid, Rebound (Female) Exam: Deferred Rectal (Female) Exam: Deferred Back Exam: Normal Inspection Extremities: Normal Inspection Skin: Warm, Dry, Intact Psychiatric: Alert - Patient Data Lab Results Last 24 hrs: Laboratory Results - last 24 hr 07/26/17 07/26/17 Range/Units 05:09 05:09 WBC 7.48 (4.0-11.0) K/uL RBC 3.55 L (4.30-5.90) M/uL Hgb 11.0 L (12.0-16.0) g/dL Hct 32.0 L (36.0-46.0) % MCV 90.1 (80.0-98.0) fL MCH 31.0 (27.0-32.0) pg MCHC 34.4 (31.0-37.0) g/dL RDW Std Deviation 40.8 (28.0-62.0) fl RDW Coeff of Nessa 13 (11.0-15.0) % Plt Count 195 (150-400) K/uL MPV 10.50 (7.40-12.00) fL Neut % (Auto) 69.8 (48.0-80.0) % Lymph % (Auto) 22.1 (16.0-40.0) % [place] % (Auto) 8.0 (0.0-15.0) % Eos % (Auto) 0.1 (0.0-7.0) % Baso % (Auto) 0.0 (0.0-1.5) % Neut # (Auto) 5.2 (1.4-5.7) K/uL Lymph # (Auto) 1.7 (0.6-2.4) K/uL [place] # (Auto) 0.6 (0.0-0.8) K/uL Eos # (Auto) 0.0 (0.0-0.7) K/uL Baso # (Auto) 0.0 (0.0-0.1) K/uL Nucleated RBC % 0.0 /100WBC Nucleated RBCs # 0 K/uL Sodium 138 (136-146) mmol/L Potassium 3.8 (3.5-5.1) mmol/L Chloride 111 H (98-110) mmol/L Carbon Dioxide 20 L (21-31) mmol/L BUN 7 (6.0-23.0) mg/dL Creatinine 0.7 (0.6-1.5) mg/dL Est Cr Clr Drug Dosing 103.46 mL/min Estimated GFR (MDRD) > 60.0 ml/min Glucose 75 (60-110) mg/dL Calcium 8.7 L (8.8-10.8) mg/dL Result Diagrams: 07/26/17 05:09 07/26/17 05:09 Soren Results Last 24 hrs: Microbiology 07/24/17 06:55 Aerobic Blood Culture - Preliminary Blood - Venous - Lab Draw NO GROWTH AFTER 2 DAYS Anaerobic Blood Culture - Preliminary NO GROWTH AFTER 2 DAYS Imaging Impressions Last 24 hrs: I do not see any appreciable change in the current CT scan. She still has diverticulitis, but I do not see a fluid collection or evidence of pneumoperitoneum. Consult PN Assessment/Plan (1) Sigmoid diverticulitis SNOMED Code(s): 294438775 Code(s): K57.32 - DVTRCLI OF LG INT W/O PERFORATION OR ABSCESS W/O BLEEDING Current Visit: Yes Problem List Initiated/Reviewed/Updated: Yes Plan: I recommend that she be kept nothing by mouth until she is completely pain- free. I think it would be reasonable to reinstitute a APPLICATION OPERATIONS ENGINEER for better pain control.
--- NOTE | 2017-07-26 16:19 | CT ---
CT of the abdomen and pelvis with contrast. HISTORY: Pain TECHNIQUE: Axial CT images were obtained of the abdomen and pelvis following administration of 100 mL of Isovue-370 in left hand without complication. Coronal and sagittal reconstructions obtained. FINDINGS: The lung bases are clear, no pleural effusion. The liver is heterogeneous in appearance without a focal mass or nodule. Focal fatty infiltration chris r the falciform ligament is noted. There is vicarious excretion of iodinated contrast within the gall bladder. There is a trace pericholecystic fluid. Pancreas appears normal. The duodenal glands and spl een appear normal. The kidneys enhance and function symmetrically without evidence of obstructive uropathy. The large and small bowel are normal in caliber without evidence of obstruction. There is moderate si gmoid wall thickening with mild adjacent stranding. There is a small cyst within the adjacent left ov reji. The right ovary and uterus appear grossly unremarkable. The appendix is normal. There is no bulk y pelvic lymphadenopathy or free pelvic fluid. The urinary bladder is normal. No suspicious osseous abnormalities identified. IMPRESSION: 1. Mild sigmoid wall thickening with a few adjacent diverticula and adjacent stranding. This may repr esent early diverticulitis. 2. Mild heterogeneous appearance noted within the liver, correlate with LFTs may be beneficial.
[2017-07-26] MEDS: LORazepam 2 MG/ML MDV IVPUSH PRN (16:23)
--- NOTE | 2017-07-26 16:46 | PCM.SN ---
- Free Text/Narrative Note: Spent greater than 15 minutes with patient and family discussing new CT results , pain management plan and overall treatment plan. and son at bedside and everyone's questions and concerns were discussed in detail. At this time they are comfortable with current care plan and agree with plan. Patient and family understand we are wanting her to be pain free before a diet is started. "I know I pushed today to have a diet, I really wanted to go home." The goal is to be pain free before diet. Ativan was started for anxiety, which patient has received and she seems much more calm. Diet for future was discussed as well as the need for colonoscopy after inflammation and acute illness as cleared. Appointment has been set up with Dr. Valentin, they request to not be seen by Dr. Orellana. I left room after all questions and concerns were answered. Dr Bella updated on plan and also agrees. We appreciate Dr. Orellana's consultation with this patient.
[2017-07-26] MEDS: Morphine PF 30 MG/30 ML PCA Vial IV SCH ×2 (17:07→21:21)
[2017-07-27] MEDS: metroNIDAZOLE/Normal Saline 500 MG in Premix Bag 1 BAG IV SCH ×5 (00:10→23:38)
[2017-07-27] MEDS: Ondansetron 4 MG/2 ML SDV IVPUSH PRN ×5 (02:01→20:40)
[2017-07-27] MEDS: Sodium Chloride 0.9% 1,000 ML IV SCH ×3 (02:11→18:03)
[2017-07-27] MEDS: Morphine PF 30 MG/30 ML PCA Vial IV SCH ×3 (02:53→17:59)
[2017-07-27 06:10] LABS: CHLORIDE,CL 112 mmol/L (98-110); SODIUM,NA 140 mmol/L (136-146)
[2017-07-27] MEDS: Ciprofloxacin in D5W 400 MG in Premix Bag 1 BAG IV SCH ×4 (07:54→21:08)
[2017-07-27] MEDS: Enoxaparin 40 MG/0.4 ML Syringe SUBCUT SCH (08:03)
--- NOTE | 2017-07-27 09:37 | PCM.PN ---
- General Info Date of Service: 07/27/17 Admission Dx/Problem (Free Text): Admission Diagnosis/Problem Admission Diagnosis/Problem Diverticulitis Subjective Update: The patient's pain is somewhat better controlled today. She's still having problems with nausea and vomiting. She is currently nothing by mouth. Functional Status: Reports: Pain Controlled. Denies: Tolerating Diet Pain Score: 6 - Review of Systems General: Reports: Weakness. Denies: Appetite HEENT: Reports: No Symptoms Pulmonary: Reports: No Symptoms Cardiovascular: Reports: No Symptoms Gastrointestinal: Reports: Abdominal Pain, Nausea, Vomiting. Denies: Flatus Genitourinary: Reports: No Symptoms Musculoskeletal: Reports: No Symptoms Skin: Reports: No Symptoms Neurological: Reports: No Symptoms Psychiatric: Reports: No Symptoms - Patient Data Vitals - Most Recent: Last Vital Signs Temp 36.1 C 07/27/17 08:00 Pulse 76 07/27/17 08:00 Resp 22 H 07/27/17 08:00 BP 121/64 07/27/17 08:00 Pulse Ox 95 07/27/17 09:00 Weight - Most Recent: 90 kg I&O - Last 24 Hours: Intake & Output 07/26/17 07/27/17 07/27/17 22:59 06:59 14:59 Intake Total 2570 1579 Output Total 1640 1200 Balance 930 379 Lab Results Last 24 Hours: Laboratory Results - last 24 hr 07/27/17 07/27/17 Range/Units 05:31 05:31 WBC 6.49 (4.0-11.0) K/uL RBC 3.48 L (4.30-5.90) M/uL Hgb 10.9 L (12.0-16.0) g/dL Hct 31.5 L (36.0-46.0) % MCV 90.5 (80.0-98.0) fL MCH 31.3 (27.0-32.0) pg MCHC 34.6 (31.0-37.0) g/dL RDW Std Deviation 41.5 (28.0-62.0) fl RDW Coeff of Nessa 13 (11.0-15.0) % Plt Count 193 (150-400) K/uL MPV 10.20 (7.40-12.00) fL Neut % (Auto) 74.5 (48.0-80.0) % Lymph % (Auto) 17.4 (16.0-40.0) % [place] % (Auto) 7.7 (0.0-15.0) % Eos % (Auto) 0.2 (0.0-7.0) % Baso % (Auto) 0.2 (0.0-1.5) % Neut # (Auto) 4.8 (1.4-5.7) K/uL Lymph # (Auto) 1.1 (0.6-2.4) K/uL [place] # (Auto) 0.5 (0.0-0.8) K/uL Eos # (Auto) 0.0 (0.0-0.7) K/uL Baso # (Auto) 0.0 (0.0-0.1) K/uL Nucleated RBC % 0.0 /100WBC Nucleated RBCs # 0 K/uL Sodium 140 (136-146) mmol/L Potassium 4.3 (3.5-5.1) mmol/L Chloride 112 H (98-110) mmol/L Carbon Dioxide 19 L (21-31) mmol/L BUN 9 (6.0-23.0) mg/dL Creatinine 0.7 (0.6-1.5) mg/dL Est Cr Clr Drug Dosing 103.46 mL/min Estimated GFR (MDRD) > 60.0 ml/min Glucose 83 (60-110) mg/dL Calcium 8.6 L (8.8-10.8) mg/dL Soren Results Last 24 Hours: Microbiology 07/24/17 06:55 Aerobic Blood Culture - Preliminary Blood - Venous - Lab Draw NO GROWTH AFTER 3 DAYS Anaerobic Blood Culture - Preliminary NO GROWTH AFTER 3 DAYS Med Orders - Current: Current Medications Enoxaparin Sodium (Lovenox) 40 mg SUBCUT DAILY [facility] Last Admin: 07/27/17 08:03 Dose: 40 mg Sodium Chloride (Normal Saline) 1,000 mls @ 125 mls/hr IV STAT [facility] Last Admin: 07/27/17 02:11 Dose: 125 mls/hr Metronidazole 500 mg/ Premix 100 mls @ 100 mls/hr IV QID [facility] Last Admin: 07/27/17 05:29 Dose: 100 mls/hr Ciprofloxacin/Dextrose 400 mg/ (Premix) 200 mls @ 200 mls/hr IV Q12H [facility] Last Admin: 07/27/17 07:54 Dose: 200 mls/hr Lorazepam (Ativan) 0.5 mg IVPUSH Q8H PRN PRN Reason: Anxiety Last Admin: 07/26/17 16:23 Dose: 0.5 mg Morphine Sulfate (Morphine Fryer Operator 30 Mg In 30 Ml) 30 mg IV ASDIRECTED [facility] PRN Reason: Protocol Last Admin: 07/27/17 02:53 Dose: 30 mg Ondansetron HCl (Zofran) 4 mg IVPUSH Q4H PRN PRN Reason: Nausea Last Admin: 07/27/17 08:01 Dose: 4 mg Discontinued Medications Hydrocodone Bitart/Acetaminophen ([place] 325-5 Mg) 1 - 2 tab PO Q4H PRN PRN Reason: Pain Hydromorphone HCl (Dilaudid) 0.5 mg IM ONETIME ONE Stop: 07/24/17 04:53 Last Admin: 07/24/17 04:58 Dose: 0.5 mg Hydromorphone HCl (Dilaudid) 0.5 mg IVPUSH ONETIME ONE Stop: 07/24/17 05:35 Last Admin: 07/24/17 05:37 Dose: 0.5 mg Hydromorphone HCl (Dilaudid) 1 mg IVPUSH ONETIME ONE Stop: 07/24/17 06:26 Last Admin: 07/24/17 06:30 Dose: 1 mg Hydromorphone HCl (Dilaudid) 1 mg IVPUSH Q2H PRN PRN Reason: Pain Last Admin: 07/24/17 12:22 Dose: 1 mg Hydromorphone HCl (Dilaudid) 1 mg IVPUSH Q2H PRN PRN Reason: Abdominal Pain Sodium Chloride (Normal Saline) 1,000 mls @ 999 mls/hr IV STAT ONE Stop: 07/24/17 05:35 Last Admin: 07/24/17 04:40 Dose: 999 mls/hr Ciprofloxacin/Dextrose 400 mg/ (Premix) 200 mls @ 200 mls/hr IV Q12H [facility] Last Admin: 07/24/17 08:23 Dose: 200 mls/hr Metronidazole 500 mg/ Premix 100 mls @ 100 mls/hr IV ONETIME ONE Stop: 07/24/17 07:32 Last Admin: 07/24/17 06:57 Dose: 100 mls/hr Ciprofloxacin/Dextrose 400 mg/ (Premix) 200 mls @ 200 mls/hr IV Q12H [facility] Iopamidol (Isovue Multipack-370 (76%)) 100 ml IVPUSH ONETIME STA Stop: 07/24/17 05:04 Last Admin: 07/24/17 05:33 Dose: 100 ml Iopamidol (Isovue Multipack-370 (76%)) 100 ml IVPUSH ONETIME STA Stop: 07/26/17 15:52 Last Admin: 07/26/17 15:52 Dose: 100 ml Morphine Sulfate (Morphine) 2 mg IVPUSH ONETIME ONE Stop: 07/24/17 04:36 Last Admin: 07/24/17 04:40 Dose: 2 mg Morphine Sulfate (Morphine) 4 mg IVPUSH ONETIME ONE Stop: 07/24/17 10:36 Last Admin: 07/24/17 10:50 Dose: 4 mg Morphine Sulfate (Morphine) 4 mg IVPUSH Q2H PRN PRN Reason: Pain Last Admin: 07/24/17 16:24 Dose: 4 mg Morphine Sulfate (Morphine) 4 mg IVPUSH Q1H PRN PRN Reason: Pain Last Admin: 07/24/17 19:49 Dose: 4 mg Morphine Sulfate (Morphine Fryer Operator 30 Mg In 30 Ml) 30 mg IV ASDIRECTED [facility] PRN Reason: Protocol Last Admin: 07/25/17 23:33 Dose: 30 mg Morphine Sulfate (Morphine) 2 mg IVPUSH Q2H PRN PRN Reason: Pain Morphine Sulfate (Morphine) 4 mg IVPUSH Q2H PRN PRN Reason: Pain Morphine Sulfate (Morphine) 4 mg IVPUSH Q2H PRN PRN Reason: Pain Last Admin: 07/26/17 13:46 Dose: 4 mg Morphine Sulfate (Morphine Fryer Operator 30 Mg In 30 Ml) 30 mg IV ASDIRECTED [facility] PRN Reason: Protocol Last Admin: 07/26/17 14:35 Dose: 30 mg Ondansetron HCl (Zofran) 8 mg IVPUSH ONETIME ONE Stop: 07/24/17 04:38 Last Admin: 07/24/17 04:46 Dose: 8 mg - Exam Quality Assessment: No: Supplemental Oxygen General: Alert, Oriented, Mild Distress HEENT: Pupils Equal, Pupils Reactive. No: Scleral Icterus Neck: Supple, Trachea Midline Lungs: Clear to Auscultation, Normal Respiratory Effort Cardiovascular: Regular Rate, Regular Rhythm GI/Abdominal Exam: Soft, No Distention, Tender. No: Rigid, Rebound Back Exam: Normal Inspection Extremities: No Pedal Edema Skin: Warm, Dry Neurological: No New Focal Deficit Psy/Mental Status: Alert, Normal Affect - Problem List & Annotations (1) Sigmoid diverticulitis SNOMED Code(s): 262494892 Code(s): K57.32 - DVTRCLI OF LG INT W/O PERFORATION OR ABSCESS W/O BLEEDING Status: Acute Priority: High Current Visit: Yes Annotation/Comment:: Continue on current IV antibiotics (2) Intractable nausea and vomiting SNOMED Code(s): 743733509 Code(s): R11.2 - NAUSEA WITH VOMITING, UNSPECIFIED Status: Acute Priority : High Current Visit: Yes Qualifiers: Vomiting type: unspecified Qualified Code(s): R11.2 - Nausea with vomiting , unspecified (3) Intractable lower abdominal pain SNOMED Code(s): 91908991 Code(s): R10.30 - LOWER ABDOMINAL PAIN, UNSPECIFIED Status: Acute Priority: High Current Visit: Yes Annotation/Comment:: Continue with Dilaudid SOIL SORT WORKER - Problem List Review Problem List Initiated/Reviewed/Updated: Yes - My Orders Last 24 Hours: My Active Orders 07/26/17 15:22 Consult to Physician [CONS] Urgent 07/26/17 15:23 Notify Provider Consults [RC] ASDIRECTED - Plan Plan:: The patient is a 42-year-old lady who is having rather severe pain secondary to sigmoid diverticulitis. The patient's CT scan which was completed yesterday does not show evidence of perforation, bowel obstruction or phlegmon formation and is unchanged from her initial CT scan. For now the patient will be utilizing Dilaudid SOIL SORT WORKER for her pain control as well as control of her nausea and vomiting. The patient will be kept nothing by mouth. Once the patient's pain is relatively well controlled and she is tolerating liquid to full liquid diet she may be considered appropriate for discharge home. For now I will continue the IV antibiotics and adjust her treatment plan as conditions and information indicates.
[2017-07-27] MEDS: LORazepam 2 MG/ML MDV IVPUSH PRN (14:15)
[2017-07-27] MEDS ORDERED: Promethazine 25 MG Tab PO PRN (20:46)
[2017-07-28] MEDS: Morphine PF 30 MG/30 ML PCA Vial IV SCH (00:35)
[2017-07-28] MEDS: Sodium Chloride 0.9% 1,000 ML IV SCH ×3 (02:17→18:34)
[2017-07-28] MEDS: LORazepam 2 MG/ML MDV IVPUSH PRN ×3 (04:54→21:25)
[2017-07-28] MEDS: metroNIDAZOLE/Normal Saline 500 MG in Premix Bag 1 BAG IV SCH ×3 (05:00→17:10)
[2017-07-28 06:32] LABS: CHLORIDE,CL 113 mmol/L (98-110); SODIUM,NA 140 mmol/L (136-146)
[2017-07-28] MEDS: Enoxaparin 40 MG/0.4 ML Syringe SUBCUT SCH (08:10)
[2017-07-28] MEDS: Ciprofloxacin in D5W 400 MG in Premix Bag 1 BAG IV SCH ×4 (08:15→20:09)
[2017-07-28] MEDS: Promethazine 25 MG/ML SDV IM PRN ×2 (09:25→17:42)
--- NOTE | 2017-07-28 09:37 | PCM.PN ---
- General Info Date of Service: 07/28/17 Admission Dx/Problem (Free Text): Admission Diagnosis/Problem Admission Diagnosis/Problem Diverticulitis Subjective Update: The patient's pain is somewhat better controlled today. She's still having problems with nausea and vomiting. She is currently nothing by mouth. Functional Status: Reports: Pain Controlled. Denies: Tolerating Diet (Nothing by mouth) Pain Score: 6 - Review of Systems General: Reports: Weakness, Fatigue HEENT: Reports: No Symptoms Pulmonary: Reports: No Symptoms Cardiovascular: Reports: No Symptoms Gastrointestinal: Reports: Abdominal Pain. Denies: Flatus Genitourinary: Reports: No Symptoms Musculoskeletal: Reports: No Symptoms Skin: Reports: No Symptoms Neurological: Reports: No Symptoms Psychiatric: Reports: No Symptoms - Patient Data Vitals - Most Recent: Last Vital Signs Temp 36.4 C 07/28/17 08:00 Pulse 59 L 07/28/17 08:00 Resp 20 07/28/17 08:00 BP 162/83 H 07/28/17 08:00 Pulse Ox 90 L 07/28/17 08:00 Weight - Most Recent: 90 kg I&O - Last 24 Hours: Intake & Output 07/27/17 07/28/17 07/28/17 22:59 06:59 14:59 Intake Total 2388 1554 200 Output Total 450 500 Balance 1938 1054 200 Lab Results Last 24 Hours: Laboratory Results - last 24 hr 07/28/17 07/28/17 Range/Units 05:58 05:58 WBC 5.68 (4.0-11.0) K/uL RBC 3.45 L (4.30-5.90) M/uL Hgb 10.7 L (12.0-16.0) g/dL Hct 31.0 L (36.0-46.0) % MCV 89.9 (80.0-98.0) fL MCH 31.0 (27.0-32.0) pg MCHC 34.5 (31.0-37.0) g/dL RDW Std Deviation 40.8 (28.0-62.0) fl RDW Coeff of Nessa 13 (11.0-15.0) % Plt Count 219 (150-400) K/uL MPV 9.90 (7.40-12.00) fL Neut % (Auto) 69.1 (48.0-80.0) % Lymph % (Auto) 22.4 (16.0-40.0) % [place] % (Auto) 8.1 (0.0-15.0) % Eos % (Auto) 0.2 (0.0-7.0) % Baso % (Auto) 0.2 (0.0-1.5) % Neut # (Auto) 3.9 (1.4-5.7) K/uL Lymph # (Auto) 1.3 (0.6-2.4) K/uL [place] # (Auto) 0.5 (0.0-0.8) K/uL Eos # (Auto) 0.0 (0.0-0.7) K/uL Baso # (Auto) 0.0 (0.0-0.1) K/uL Nucleated RBC % 0.0 /100WBC Nucleated RBCs # 0 K/uL Sodium 140 (136-146) mmol/L Potassium 3.7 (3.5-5.1) mmol/L Chloride 113 H (98-110) mmol/L Carbon Dioxide 18 L (21-31) mmol/L BUN 11 (6.0-23.0) mg/dL Creatinine 0.7 (0.6-1.5) mg/dL Est Cr Clr Drug Dosing 103.46 mL/min Estimated GFR (MDRD) > 60.0 ml/min Glucose 77 (60-110) mg/dL Calcium 8.3 L (8.8-10.8) mg/dL Phosphorus 2.6 (2.4-4.7) mg/dL Magnesium 1.0 L (1.5-2.3) mEq/L Soren Results Last 24 Hours: Microbiology 07/24/17 06:55 Aerobic Blood Culture - Preliminary Blood - Venous - Lab Draw NO GROWTH AFTER 4 DAYS Anaerobic Blood Culture - Preliminary NO GROWTH AFTER 4 DAYS Med Orders - Current: Current Medications Enoxaparin Sodium (Lovenox) 40 mg SUBCUT DAILY [facility] Last Admin: 07/28/17 08:10 Dose: 40 mg Sodium Chloride (Normal Saline) 1,000 mls @ 125 mls/hr IV STAT [facility] Last Admin: 07/28/17 02:17 Dose: 125 mls/hr Metronidazole 500 mg/ Premix 100 mls @ 100 mls/hr IV QID [facility] Last Infusion: 07/28/17 06:00 Dose: Infused Ciprofloxacin/Dextrose 400 mg/ (Premix) 200 mls @ 200 mls/hr IV Q12H [facility] Last Admin: 07/28/17 08:15 Dose: 200 mls/hr Lorazepam (Ativan) 0.5 mg IVPUSH Q8H PRN PRN Reason: Anxiety Last Admin: 07/28/17 04:54 Dose: 0.5 mg Morphine Sulfate (Morphine Survey Operations Director 30 Mg In 30 Ml) 30 mg IV ASDIRECTED [facility] PRN Reason: Protocol Last Admin: 07/28/17 00:35 Dose: 30 mg Promethazine HCl (Phenergan) 25 mg IM Q8H PRN PRN Reason: Nausea/Vomiting Last Admin: 07/28/17 09:25 Dose: 25 mg Discontinued Medications Hydrocodone Bitart/Acetaminophen ([place] 325-5 Mg) 1 - 2 tab PO Q4H PRN PRN Reason: Pain Hydromorphone HCl (Dilaudid) 0.5 mg IM ONETIME ONE Stop: 07/24/17 04:53 Last Admin: 07/24/17 04:58 Dose: 0.5 mg Hydromorphone HCl (Dilaudid) 0.5 mg IVPUSH ONETIME ONE Stop: 07/24/17 05:35 Last Admin: 07/24/17 05:37 Dose: 0.5 mg Hydromorphone HCl (Dilaudid) 1 mg IVPUSH ONETIME ONE Stop: 07/24/17 06:26 Last Admin: 07/24/17 06:30 Dose: 1 mg Hydromorphone HCl (Dilaudid) 1 mg IVPUSH Q2H PRN PRN Reason: Pain Last Admin: 07/24/17 12:22 Dose: 1 mg Hydromorphone HCl (Dilaudid) 1 mg IVPUSH Q2H PRN PRN Reason: Abdominal Pain Sodium Chloride (Normal Saline) 1,000 mls @ 999 mls/hr IV STAT ONE Stop: 07/24/17 05:35 Last Admin: 07/24/17 04:40 Dose: 999 mls/hr Ciprofloxacin/Dextrose 400 mg/ (Premix) 200 mls @ 200 mls/hr IV Q12H [facility] Last Admin: 07/24/17 08:23 Dose: 200 mls/hr Metronidazole 500 mg/ Premix 100 mls @ 100 mls/hr IV ONETIME ONE Stop: 07/24/17 07:32 Last Admin: 07/24/17 06:57 Dose: 100 mls/hr Ciprofloxacin/Dextrose 400 mg/ (Premix) 200 mls @ 200 mls/hr IV Q12H [facility] Iopamidol (Isovue Multipack-370 (76%)) 100 ml IVPUSH ONETIME [facility] Stop: 07/24/17 05:04 Last Admin: 07/24/17 05:33 Dose: 100 ml Iopamidol (Isovue Multipack-370 (76%)) 100 ml IVPUSH ONETIME [facility] Stop: 07/26/17 15:52 Last Admin: 07/26/17 15:52 Dose: 100 ml Morphine Sulfate (Morphine) 2 mg IVPUSH ONETIME ONE Stop: 07/24/17 04:36 Last Admin: 07/24/17 04:40 Dose: 2 mg Morphine Sulfate (Morphine) 4 mg IVPUSH ONETIME ONE Stop: 07/24/17 10:36 Last Admin: 07/24/17 10:50 Dose: 4 mg Morphine Sulfate (Morphine) 4 mg IVPUSH Q2H PRN PRN Reason: Pain Last Admin: 07/24/17 16:24 Dose: 4 mg Morphine Sulfate (Morphine) 4 mg IVPUSH Q1H PRN PRN Reason: Pain Last Admin: 07/24/17 19:49 Dose: 4 mg Morphine Sulfate (Morphine Survey Operations Director 30 Mg In 30 Ml) 30 mg IV ASDIRECTED [facility] PRN Reason: Protocol Last Admin: 07/25/17 23:33 Dose: 30 mg Morphine Sulfate (Morphine) 2 mg IVPUSH Q2H PRN PRN Reason: Pain Morphine Sulfate (Morphine) 4 mg IVPUSH Q2H PRN PRN Reason: Pain Morphine Sulfate (Morphine) 4 mg IVPUSH Q2H PRN PRN Reason: Pain Last Admin: 07/26/17 13:46 Dose: 4 mg Morphine Sulfate (Morphine Survey Operations Director 30 Mg In 30 Ml) 30 mg IV ASDIRECTED [facility] PRN Reason: Protocol Last Admin: 07/26/17 14:35 Dose: 30 mg Ondansetron HCl (Zofran) 8 mg IVPUSH ONETIME ONE Stop: 07/24/17 04:38 Last Admin: 07/24/17 04:46 Dose: 8 mg Ondansetron HCl (Zofran) 4 mg IVPUSH Q4H PRN PRN Reason: Nausea Last Admin: 07/27/17 20:40 Dose: 4 mg Promethazine HCl (Phenergan) 25 mg PO Q6H PRN PRN Reason: Nausea/Vomiting Last Admin: 07/27/17 21:29 Dose: 25 mg - Exam Quality Assessment: No: Supplemental Oxygen General: Alert, Oriented, Mild Distress HEENT: Pupils Equal, Pupils Reactive Neck: Supple Lungs: Clear to Auscultation, Normal Respiratory Effort GI/Abdominal Exam: Soft, Non-Tender, Abnormal Bowel Sounds (Hypoactive), Other Back Exam: Normal Inspection Extremities: No Pedal Edema, Normal Capillary Refill Skin: Warm, Dry Neurological: No New Focal Deficit Psy/Mental Status: Alert, Normal Affect - Problem List & Annotations (1) Dynamic ileus SNOMED Code(s): 11862713 Code(s): K56.7 - ILEUS, UNSPECIFIED Status: Acute Priority: High Current Visit: Yes Annotation/Comment:: Flat and upright abdominal x-ray ordered, encouraged to ambulate, likely secondary to narcotic usage (2) Sigmoid diverticulitis SNOMED Code(s): 748515443 Code(s): K57.32 - DVTRCLI OF LG INT W/O PERFORATION OR ABSCESS W/O BLEEDING Status: Acute Priority: High Current Visit: Yes Annotation/Comment:: Continue on current IV antibiotics (3) Intractable nausea and vomiting SNOMED Code(s): 150065999 Code(s): R11.2 - NAUSEA WITH VOMITING, UNSPECIFIED Status: Acute Priority : High Current Visit: Yes Qualifiers: Vomiting type: unspecified Qualified Code(s): R11.2 - Nausea with vomiting , unspecified (4) Intractable lower abdominal pain SNOMED Code(s): 09710647 Code(s): R10.30 - LOWER ABDOMINAL PAIN, UNSPECIFIED Status: Acute Priority: High Current Visit: Yes Annotation/Comment:: Continue with Dilaudid ONLINE CONTENT EDITOR - Problem List Review Problem List Initiated/Reviewed/Updated: Yes - My Orders Last 24 Hours: My Active Orders 07/27/17 22:31 Promethazine [Phenergan] 25 mg IM Q8H PRN 07/28/17 08:35 Abdomen 2V AP Flat Upright [CR] Urgent - Plan Plan:: The patient is a 42-year-old lady with relatively mild diverticulitis. The patient has been on continuous IV antibiotics and pain medications. She has also been kept nothing by mouth secondary to her nausea and vomiting. The patient has continued to have nausea and vomiting in spite of Zofran, Phenergan and pain control. I believe that the patient's problem now is likely ileus develop secondary to narcotic usage. Physical examination today is relatively benign exception of hypodynamic bowel sounds. I've ordered of abdominal x-ray flat plate and upright to ascertain bowel gas patterns. The patient's been encouraged to ambulate. I want the patient off the narcotics as soon as possible. I have discussed this with the patient. For now she'll be kept nothing by mouth until such time as she is able to tolerate fluids and/or full liquid diet without having further abdominal pain. The patient may be likely appropriate for discharge home in one day depending on her improvement. She also be kept on IV antibiotics for now.
[2017-07-29] MEDS: metroNIDAZOLE/Normal Saline 500 MG in Premix Bag 1 BAG IV SCH ×3 (04:25→12:14)
[2017-07-29] MEDS: Sodium Chloride 0.9% 1,000 ML IV SCH (04:50)
[2017-07-29 06:24] LABS: CHLORIDE,CL 112 mmol/L (98-110); SODIUM,NA 140 mmol/L (136-146)
[2017-07-29] MEDS: LORazepam 2 MG/ML MDV IVPUSH PRN (07:51)
[2017-07-29] MEDS: Ciprofloxacin in D5W 400 MG in Premix Bag 1 BAG IV SCH ×2 (07:56)
[2017-07-29] MEDS: Enoxaparin 40 MG/0.4 ML Syringe SUBCUT SCH (08:08)
[2017-07-29] MEDS ORDERED: Magnesium Sulfate/Water 2 GM in Premix Bag 1 BAG IV ONE (08:50)
[2017-07-29] MEDS ORDERED: NS + KCl 20mEq/L 1,000 ML IV SCH (09:00)
--- NOTE | 2017-07-29 09:23 | PCM.PN ---
- General Info Date of Service: 07/29/17 Admission Dx/Problem (Free Text): Admission Diagnosis/Problem Admission Diagnosis/Problem Diverticulitis Subjective Update: The patient has been doing better today. She's had a bowel movement and has been passing flatus. Functional Status: Reports: Pain Controlled. Denies: Tolerating Diet (Still nothing by mouth) Pain Score: 2 - Review of Systems General: Reports: Weakness, Fatigue HEENT: Reports: No Symptoms Pulmonary: Reports: No Symptoms Cardiovascular: Reports: No Symptoms Gastrointestinal: Reports: Abdominal Pain Genitourinary: Reports: No Symptoms Musculoskeletal: Reports: No Symptoms Skin: Reports: No Symptoms Neurological: Reports: No Symptoms Psychiatric: Reports: No Symptoms - Patient Data Vitals - Most Recent: Last Vital Signs Temp 36.8 C 07/29/17 08:00 Pulse 52 L 07/29/17 08:00 Resp 14 07/29/17 08:00 BP 159/70 H 07/29/17 08:00 Pulse Ox 97 07/29/17 08:00 Weight - Most Recent: 90 kg I&O - Last 24 Hours: Intake & Output 07/28/17 07/29/17 07/29/17 22:59 06:59 14:59 Intake Total 1280 2484 Output Total 500 830 Balance 780 1654 Lab Results Last 24 Hours: Laboratory Results - last 24 hr 07/29/17 07/29/17 07/29/17 Range/Units 05:50 05:50 05:50 WBC 6.98 (4.0-11.0) K/uL RBC 3.53 L (4.30-5.90) M/uL Hgb 11.0 L (12.0-16.0) g/dL Hct 31.1 L (36.0-46.0) % MCV 88.1 (80.0-98.0) fL MCH 31.2 (27.0-32.0) pg MCHC 35.4 (31.0-37.0) g/dL RDW Std Deviation 40.2 (28.0-62.0) fl RDW Coeff of Nessa 13 (11.0-15.0) % Plt Count 238 (150-400) K/uL MPV 10.00 (7.40-12.00) fL Neut % (Auto) 74.4 (48.0-80.0) % Lymph % (Auto) 15.8 L (16.0-40.0) % [place] % (Auto) 9.6 (0.0-15.0) % Eos % (Auto) 0.1 (0.0-7.0) % Baso % (Auto) 0.1 (0.0-1.5) % Neut # (Auto) 5.2 (1.4-5.7) K/uL Lymph # (Auto) 1.1 (0.6-2.4) K/uL [place] # (Auto) 0.7 (0.0-0.8) K/uL Eos # (Auto) 0.0 (0.0-0.7) K/uL Baso # (Auto) 0.0 (0.0-0.1) K/uL Nucleated RBC % 0.0 /100WBC Nucleated RBCs # 0 K/uL Sodium 140 (136-146) mmol/L Potassium 3.4 L (3.5-5.1) mmol/L Chloride 112 H (98-110) mmol/L Carbon Dioxide 18 L (21-31) mmol/L BUN 10 (6.0-23.0) mg/dL Creatinine 0.7 (0.6-1.5) mg/dL Est Cr Clr Drug Dosing 103.46 mL/min Estimated GFR (MDRD) > 60.0 ml/min Glucose 83 (60-110) mg/dL Calcium 8.4 L (8.8-10.8) mg/dL Magnesium 1.1 L (1.5-2.3) mEq/L Total Bilirubin 0.3 (0.1-1.5) mg/dL AST 13 (5-40) IU/L ALT 15 (8-54) IU/L Alkaline Phosphatase 49 (40-150) Total Protein 5.4 L (6.0-8.0) g/dL Albumin 3.0 L (3.5-5.0) g/dL Globulin 2.4 (2.0-3.5) g/dL Albumin/Globulin Ratio 1.3 (1.3-2.8) Soren Results Last 24 Hours: Microbiology 07/24/17 06:55 Aerobic Blood Culture - Final Blood - Venous - Lab Draw NO GROWTH AFTER 5 DAYS Anaerobic Blood Culture - Final NO GROWTH AFTER 5 DAYS Med Orders - Current: Current Medications Enoxaparin Sodium (Lovenox) 40 mg SUBCUT DAILY [facility] Last Admin: 07/29/17 08:08 Dose: 40 mg Sodium Chloride (Normal Saline) 1,000 mls @ 125 mls/hr IV STAT [facility] Last Admin: 07/29/17 04:50 Dose: 125 mls/hr Metronidazole 500 mg/ Premix 100 mls @ 100 mls/hr IV QID [facility] Last Admin: 07/29/17 05:20 Dose: 100 mls/hr Ciprofloxacin/Dextrose 400 mg/ (Premix) 200 mls @ 200 mls/hr IV Q12H [facility] Last Admin: 07/29/17 07:56 Dose: 200 mls/hr Magnesium Sulfate 2 gm/ Premix 50 mls @ 50 mls/hr IV ONETIME ONE Stop: 07/29/17 09:49 Potassium Chloride/Sodium Chloride (Normal Saline With 20 Meq Kcl) 1,000 mls @ 125 mls/hr IV ASDIRECTED [facility] Stop: 07/29/17 16:59 Lorazepam (Ativan) 0.5 mg IVPUSH Q8H PRN PRN Reason: Anxiety Last Admin: 07/29/17 07:51 Dose: 0.5 mg Promethazine HCl (Phenergan) 25 mg IM Q8H PRN PRN Reason: Nausea/Vomiting Last Admin: 07/28/17 17:42 Dose: 25 mg Discontinued Medications Hydrocodone Bitart/Acetaminophen ([place] 325-5 Mg) 1 - 2 tab PO Q4H PRN PRN Reason: Pain Hydromorphone HCl (Dilaudid) 0.5 mg IM ONETIME ONE Stop: 07/24/17 04:53 Last Admin: 07/24/17 04:58 Dose: 0.5 mg Hydromorphone HCl (Dilaudid) 0.5 mg IVPUSH ONETIME ONE Stop: 07/24/17 05:35 Last Admin: 07/24/17 05:37 Dose: 0.5 mg Hydromorphone HCl (Dilaudid) 1 mg IVPUSH ONETIME ONE Stop: 07/24/17 06:26 Last Admin: 07/24/17 06:30 Dose: 1 mg Hydromorphone HCl (Dilaudid) 1 mg IVPUSH Q2H PRN PRN Reason: Pain Last Admin: 07/24/17 12:22 Dose: 1 mg Hydromorphone HCl (Dilaudid) 1 mg IVPUSH Q2H PRN PRN Reason: Abdominal Pain Sodium Chloride (Normal Saline) 1,000 mls @ 999 mls/hr IV STAT ONE Stop: 07/24/17 05:35 Last Admin: 07/24/17 04:40 Dose: 999 mls/hr Ciprofloxacin/Dextrose 400 mg/ (Premix) 200 mls @ 200 mls/hr IV Q12H [facility] Last Admin: 07/24/17 08:23 Dose: 200 mls/hr Metronidazole 500 mg/ Premix 100 mls @ 100 mls/hr IV ONETIME ONE Stop: 07/24/17 07:32 Last Admin: 07/24/17 06:57 Dose: 100 mls/hr Ciprofloxacin/Dextrose 400 mg/ (Premix) 200 mls @ 200 mls/hr IV Q12H [facility] Iopamidol (Isovue Multipack-370 (76%)) 100 ml IVPUSH ONETIME [facility] Stop: 07/24/17 05:04 Last Admin: 07/24/17 05:33 Dose: 100 ml Iopamidol (Isovue Multipack-370 (76%)) 100 ml IVPUSH ONETIME [facility] Stop: 07/26/17 15:52 Last Admin: 07/26/17 15:52 Dose: 100 ml Morphine Sulfate (Morphine) 2 mg IVPUSH ONETIME ONE Stop: 07/24/17 04:36 Last Admin: 07/24/17 04:40 Dose: 2 mg Morphine Sulfate (Morphine) 4 mg IVPUSH ONETIME ONE Stop: 07/24/17 10:36 Last Admin: 07/24/17 10:50 Dose: 4 mg Morphine Sulfate (Morphine) 4 mg IVPUSH Q2H PRN PRN Reason: Pain Last Admin: 07/24/17 16:24 Dose: 4 mg Morphine Sulfate (Morphine) 4 mg IVPUSH Q1H PRN PRN Reason: Pain Last Admin: 07/24/17 19:49 Dose: 4 mg Morphine Sulfate (Morphine Mechanical Applications Engineer 30 Mg In 30 Ml) 30 mg IV ASDIRECTED [facility] PRN Reason: Protocol Last Admin: 07/25/17 23:33 Dose: 30 mg Morphine Sulfate (Morphine) 2 mg IVPUSH Q2H PRN PRN Reason: Pain Morphine Sulfate (Morphine) 4 mg IVPUSH Q2H PRN PRN Reason: Pain Morphine Sulfate (Morphine) 4 mg IVPUSH Q2H PRN PRN Reason: Pain Last Admin: 07/26/17 13:46 Dose: 4 mg Morphine Sulfate (Morphine Mechanical Applications Engineer 30 Mg In 30 Ml) 30 mg IV ASDIRECTED [facility] PRN Reason: Protocol Last Admin: 07/26/17 14:35 Dose: 30 mg Morphine Sulfate (Morphine Mechanical Applications Engineer 30 Mg In 30 Ml) 30 mg IV ASDIRECTED [facility] PRN Reason: Protocol Last Admin: 07/28/17 00:35 Dose: 30 mg Ondansetron HCl (Zofran) 8 mg IVPUSH ONETIME ONE Stop: 07/24/17 04:38 Last Admin: 07/24/17 04:46 Dose: 8 mg Ondansetron HCl (Zofran) 4 mg IVPUSH Q4H PRN PRN Reason: Nausea Last Admin: 07/27/17 20:40 Dose: 4 mg Promethazine HCl (Phenergan) 25 mg PO Q6H PRN PRN Reason: Nausea/Vomiting Last Admin: 07/27/17 21:29 Dose: 25 mg - Exam Quality Assessment: No: Supplemental Oxygen General: Alert, Oriented, Cooperative, No Acute Distress HEENT: Pupils Equal, Pupils Reactive Neck: Supple Lungs: Clear to Auscultation, Normal Respiratory Effort GI/Abdominal Exam: Normal Bowel Sounds, Soft, Non-Tender, No Distention (Female) Exam: Deferred Back Exam: Decreased Range of Motion Extremities: No Pedal Edema Skin: Warm, Dry Neurological: No New Focal Deficit Psy/Mental Status: Alert, Normal Affect, Normal Mood - Problem List & Annotations (1) Dynamic ileus SNOMED Code(s): 41448894 Code(s): K56.7 - ILEUS, UNSPECIFIED Status: Acute Priority: High Current Visit: Yes Annotation/Comment:: Flat and upright abdominal x-ray ordered, encouraged to ambulate, likely secondary to narcotic usage (2) Sigmoid diverticulitis SNOMED Code(s): 779260867 Code(s): K57.32 - DVTRCLI OF LG INT W/O PERFORATION OR ABSCESS W/O BLEEDING Status: Acute Priority: High Current Visit: Yes Annotation/Comment:: Continue on current IV antibiotics (3) Intractable nausea and vomiting SNOMED Code(s): 004736171 Code(s): R11.2 - NAUSEA WITH VOMITING, UNSPECIFIED Status: Acute Priority : High Current Visit: Yes Qualifiers: Vomiting type: unspecified Qualified Code(s): R11.2 - Nausea with vomiting , unspecified (4) Intractable lower abdominal pain SNOMED Code(s): 72762945 Code(s): R10.30 - LOWER ABDOMINAL PAIN, UNSPECIFIED Status: Acute Priority: High Current Visit: Yes Annotation/Comment:: Continue with Dilaudid HAT PRESSER - Problem List Review Problem List Initiated/Reviewed/Updated: Yes - My Orders Last 24 Hours: My Active Orders 07/28/17 08:35 Abdomen 2V AP Flat Upright [CR] Urgent 07/29/17 08:50 Magnesium Sulfate/Water [Magnesium Sulfate 2 GM in Water 50 ML] 2 gm Premix Bag 1 bag IV ONETIME 07/29/17 09:00 NS + KCl 20mEq/L [Normal Saline with 20 mEq KCl] 1,000 ml IV ASDIRECTED 07/29/17 Lunch Clear Liquid Diet [DIET] - Plan Plan:: The patient is a 42-year-old lady with relatively mild diverticulitis. The patient has been on continuous IV antibiotics and pain medications. She has also been kept nothing by mouth secondary to her nausea and vomiting. The patient has continued to have nausea and vomiting in spite of Zofran, Phenergan and pain control. I believe that the patient's problem now is likely ileus develop secondary to narcotic usage. Physical examination today is relatively benign exception of hypodynamic bowel sounds. I've ordered of abdominal x-ray flat plate and upright to ascertain bowel gas patterns. The patient's been encouraged to ambulate. I want the patient off the narcotics as soon as possible. I have discussed this with the patient. For now she'll be kept nothing by mouth until such time as she is able to tolerate fluids and/or full liquid diet without having further abdominal pain. The patient may be likely appropriate for discharge home in one day depending on her improvement. She also be kept on IV antibiotics for now. The patient is a 42-year-old lady who has had some improvement in her symptoms overnight. She was admitted initially secondary to mild diverticulitis. The patient also has been using Dilaudid and morphine HAT PRESSER at times and the patient says that she has not used the HAT PRESSER in at least 24 hours. The patient's Dilaudid HAT PRESSER has been discontinued. Also I believe that the patient's ileus is resolved as she does have active bowel sounds and significantly less tender. Patient also has been passing gas and has had a bowel movement. I think the patient be appropriate for discharge home today and I have advanced the patient's diet. If the patient does go home today after she has been tolerating diet she will be discharged home with Zofran and pain medications. I've recommended that the patient follow-up with her primary care physician within a week. The patient is to have a regular diet as tolerated. She is also have activity as tolerated.
--- NOTE | 2017-07-29 11:32 | CR ---
EXAM DATE: 07/24/17 PATIENT'S AGE: 42 Patient: KAYLEY REA Facility: [place], [place] Site . Site : [id number] Study: XRay Abdomen [id number]/8/2017 10:46:32 AM Ordering Physician: Netta Cooley Final Report: INDICATION: Nausea and vomiting. Technique: Flat and upright abdomen. Findings: No free intraperitoneal air. Normal bowel gas pattern. No calcifications overlying the kidneys, pancreas, or hepatobiliary system. No mass or organomegaly. No acute bony abnormality. Impression: No bowel perforation or obstruction. Dictated by Katy Hunt MD @ Jul 28 2017 10:50AM (Electronic Signature) Report Signed by Proxy. [facility]
[2017-07-29 11:59] VITALS: BP 150/86
--- NOTE | 2017-07-29 16:07 | PCM.DCSUM1 ---
Discharge Summary - Hospital Course Free Text/Narrative:: The patient was initially admitted secondary to sigmoid diverticulitis. - Discharge Data Discharge Date: 07/29/17 Discharge Disposition: Home, Self-Care 01 Condition: Good - Discharge Diagnosis/Problem(s) (1) Dynamic ileus SNOMED Code(s): 94845572 ICD Code: K56.7 - ILEUS, UNSPECIFIED Status: Resolved Priority: High Problem Details: Flat and upright abdominal x-ray ordered, encouraged to ambulate, likely secondary to narcotic usage (2) Sigmoid diverticulitis SNOMED Code(s): 485437791 ICD Code: K57.32 - DVTRCLI OF LG INT W/O PERFORATION OR ABSCESS W/O BLEEDING Status: Resolved Priority: High Problem Details: Continue on current IV antibiotics (3) Intractable nausea and vomiting SNOMED Code(s): 152039562 ICD Code: R11.2 - NAUSEA WITH VOMITING, UNSPECIFIED Status: Resolved Priority: High Qualifiers: Vomiting type: unspecified Qualified Code(s): R11.2 - Nausea with vomiting , unspecified (4) Intractable lower abdominal pain SNOMED Code(s): 92630936 ICD Code: R10.30 - LOWER ABDOMINAL PAIN, UNSPECIFIED Status: Resolved Priority: High - Patient Summary/Data Consults: Consultations 07/26/17 15:22 Consult to Physician [CONS] Urgent Hospital Course: The patient is a 42-year-old lady with relatively mild diverticulitis. The patient has been on continuous IV antibiotics and pain medications. She has also been kept nothing by mouth secondary to her nausea and vomiting. The patient has continued to have nausea and vomiting in spite of Zofran, Phenergan and pain control. I believe that the patient's problem now is likely ileus develop secondary to narcotic usage. Physical examination today is relatively benign exception of hypodynamic bowel sounds. I've ordered of abdominal x-ray flat plate and upright to ascertain bowel gas patterns. The patient's been encouraged to ambulate. I want the patient off the narcotics as soon as possible. I have discussed this with the patient. For now she'll be kept nothing by mouth until such time as she is able to tolerate fluids and/or full liquid diet without having further abdominal pain. The patient may be likely appropriate for discharge home in one day depending on her improvement. She also be kept on IV antibiotics for now. The patient has had somewhat of a rough course secondary to repeated pain and she developed a ileus secondary to narcotic usage. Patient had [address] scans which did show mild resolving sigmoid diverticulitis. Also surgeon was consulted and felt that this was not a surgical abdomen at this time. The patient also has been using Dilaudid and morphine PSYCHOLOGIST ENGINEERING at times and the patient says that she has not used the PSYCHOLOGIST ENGINEERING in at least 24 hours. The patient's Dilaudid PSYCHOLOGIST ENGINEERING has been discontinued. Also I believe that the patient's ileus is resolved as she does have active bowel sounds and significantly less tender. Patient also has been passing gas and has had a bowel movement. I think the patient be appropriate for discharge home today and I have advanced the patient's diet. If the patient does go home today after she has been tolerating diet she will be discharged home with Zofran and pain medications. I've recommended that the patient follow-up with her primary care physician within a week. The patient is to have a regular diet as tolerated. She is also have activity as tolerated. The patient was discharged on hydrocodone/APAP 5/325 to take 1 tablet every 8 hours as needed for pain. Also she was given Zofran 8 mg by mouth every 8 hours as needed for nausea. - Patient Instructions Diet: Usual Diet as Tolerated Activity: As Tolerated Driving: May Drive Today - Discharge Plan Prescriptions/Med Rec: Hydrocodone/Acetaminophen [Hydrocodon-Acetaminophen 5-325] 1 each PO Q8HR PRN # 10 tablet PRN Reason: Pain Ondansetron [Zofran ODT] 8 mg PO Q8H #20 tab.dis Home Medications: Home Meds Hydrocodone/Acetaminophen [Hydrocodon-Acetaminophen 5-325] 1 each PO Q8HR PRN # 10 tablet 07/29/17 [Rx] Ondansetron [Zofran ODT] 8 mg PO Q8H #20 tab.dis 07/29/17 [Rx] Patient Handouts: Acetaminophen; Hydrocodone tablets or capsules, Diverticulitis, [id number], Ondansetron tablets Referrals: Bhargavi Marse MD [Physician] - 08/05/17 9:00 am Makenna Valentin MD [Physician] - 08/19/17 2:15 pm - Discharge Summary/Plan Comment DC Time >30 min.: Yes - General Info Date of Service: 07/29/17 Admission Dx/Problem (Free Text: The patient was experiencing marked improvement, significantly less pain, able to tolerate diet and ambulating. Functional Status: Reports: Pain Controlled, Tolerating Diet - Review of Systems General: Reports: No Symptoms HEENT: Reports: No Symptoms Pulmonary: Reports: No Symptoms Cardiovascular: Reports: No Symptoms Gastrointestinal: Reports: Abdominal Pain (Very mild), Flatus. Denies: Constipation, Diarrhea Genitourinary: Reports: No Symptoms Musculoskeletal: Reports: No Symptoms Skin: Reports: No Symptoms Neurological: Reports: No Symptoms Psychiatric: Reports: No Symptoms - Patient Data Vitals - Most Recent: Last Vital Signs Temp 37.1 C 07/29/17 11:58 Pulse 55 L 07/29/17 11:58 Resp 18 07/29/17 11:58 BP 150/86 H 07/29/17 11:58 Pulse Ox 99 07/29/17 11:58 Weight - Most Recent: 90 kg I&O - Last 24 hours: Intake & Output 07/29/17 07/29/17 07/29/17 06:59 14:59 22:59 Intake Total 2484 50 Output Total 830 Balance 1654 50 Lab Results - Last 24 hrs: Laboratory Results - last 24 hr 07/29/17 07/29/17 07/29/17 Range/Units 05:50 05:50 05:50 WBC 6.98 (4.0-11.0) K/uL RBC 3.53 L (4.30-5.90) M/uL Hgb 11.0 L (12.0-16.0) g/dL Hct 31.1 L (36.0-46.0) % MCV 88.1 (80.0-98.0) fL MCH 31.2 (27.0-32.0) pg MCHC 35.4 (31.0-37.0) g/dL RDW Std Deviation 40.2 (28.0-62.0) fl RDW Coeff of Nessa 13 (11.0-15.0) % Plt Count 238 (150-400) K/uL MPV 10.00 (7.40-12.00) fL Neut % (Auto) 74.4 (48.0-80.0) % Lymph % (Auto) 15.8 L (16.0-40.0) % [place] % (Auto) 9.6 (0.0-15.0) % Eos % (Auto) 0.1 (0.0-7.0) % Baso % (Auto) 0.1 (0.0-1.5) % Neut # (Auto) 5.2 (1.4-5.7) K/uL Lymph # (Auto) 1.1 (0.6-2.4) K/uL [place] # (Auto) 0.7 (0.0-0.8) K/uL Eos # (Auto) 0.0 (0.0-0.7) K/uL Baso # (Auto) 0.0 (0.0-0.1) K/uL Nucleated RBC % 0.0 /100WBC Nucleated RBCs # 0 K/uL Sodium 140 (136-146) mmol/L Potassium 3.4 L (3.5-5.1) mmol/L Chloride 112 H (98-110) mmol/L Carbon Dioxide 18 L (21-31) mmol/L BUN 10 (6.0-23.0) mg/dL Creatinine 0.7 (0.6-1.5) mg/dL Est Cr Clr Drug Dosing 103.46 mL/min Estimated GFR (MDRD) > 60.0 ml/min Glucose 83 (60-110) mg/dL Calcium 8.4 L (8.8-10.8) mg/dL Magnesium 1.1 L (1.5-2.3) mEq/L Total Bilirubin 0.3 (0.1-1.5) mg/dL AST 13 (5-40) IU/L ALT 15 (8-54) IU/L Alkaline Phosphatase 49 (40-150) Total Protein 5.4 L (6.0-8.0) g/dL Albumin 3.0 L (3.5-5.0) g/dL Globulin 2.4 (2.0-3.5) g/dL Albumin/Globulin Ratio 1.3 (1.3-2.8) LINDEN Results - Last 24 hrs: Microbiology 07/24/17 06:55 Aerobic Blood Culture - Final Blood - Venous - Lab Draw NO GROWTH AFTER 5 DAYS Anaerobic Blood Culture - Final NO GROWTH AFTER 5 DAYS Med Orders - Current: Current Medications Enoxaparin Sodium (Lovenox) 40 mg SUBCUT DAILY [facility] Last Admin: 07/29/17 08:08 Dose: 40 mg Sodium Chloride (Normal Saline) 1,000 mls @ 125 mls/hr IV STAT [facility] Last Admin: 07/29/17 04:50 Dose: 125 mls/hr Metronidazole 500 mg/ Premix 100 mls @ 100 mls/hr IV QID [facility] Last Admin: 07/29/17 12:14 Dose: 100 mls/hr Ciprofloxacin/Dextrose 400 mg/ (Premix) 200 mls @ 200 mls/hr IV Q12H [facility] Last Admin: 07/29/17 07:56 Dose: 200 mls/hr Potassium Chloride/Sodium Chloride (Normal Saline With 20 Meq Kcl) 1,000 mls @ 125 mls/hr IV ASDIRECTED [facility] Stop: 07/29/17 16:59 Last Admin: 07/29/17 09:30 Dose: 125 mls/hr Lorazepam (Ativan) 0.5 mg IVPUSH Q8H PRN PRN Reason: Anxiety Last Admin: 07/29/17 07:51 Dose: 0.5 mg Promethazine HCl (Phenergan) 25 mg IM Q8H PRN PRN Reason: Nausea/Vomiting Last Admin: 07/28/17 17:42 Dose: 25 mg Discontinued Medications Hydrocodone Bitart/Acetaminophen ([place] 325-5 Mg) 1 - 2 tab PO Q4H PRN PRN Reason: Pain Hydromorphone HCl (Dilaudid) 0.5 mg IM ONETIME ONE Stop: 07/24/17 04:53 Last Admin: 07/24/17 04:58 Dose: 0.5 mg Hydromorphone HCl (Dilaudid) 0.5 mg IVPUSH ONETIME ONE Stop: 07/24/17 05:35 Last Admin: 07/24/17 05:37 Dose: 0.5 mg Hydromorphone HCl (Dilaudid) 1 mg IVPUSH ONETIME ONE Stop: 07/24/17 06:26 Last Admin: 07/24/17 06:30 Dose: 1 mg Hydromorphone HCl (Dilaudid) 1 mg IVPUSH Q2H PRN PRN Reason: Pain Last Admin: 07/24/17 12:22 Dose: 1 mg Hydromorphone HCl (Dilaudid) 1 mg IVPUSH Q2H PRN PRN Reason: Abdominal Pain Sodium Chloride (Normal Saline) 1,000 mls @ 999 mls/hr IV STAT [facility] Stop: 07/24/17 05:35 Last Admin: 07/24/17 04:40 Dose: 999 mls/hr Ciprofloxacin/Dextrose 400 mg/ (Premix) 200 mls @ 200 mls/hr IV Q12H [facility] Last Admin: 07/24/17 08:23 Dose: 200 mls/hr Metronidazole 500 mg/ Premix 100 mls @ 100 mls/hr IV ONETIME ONE Stop: 07/24/17 07:32 Last Admin: 07/24/17 06:57 Dose: 100 mls/hr Ciprofloxacin/Dextrose 400 mg/ (Premix) 200 mls @ 200 mls/hr IV Q12H [facility] Magnesium Sulfate 2 gm/ Premix 50 mls @ 50 mls/hr IV ONETIME ONE Stop: 07/29/17 09:49 Last Admin: 07/29/17 09:33 Dose: 50 mls/hr Iopamidol (Isovue Multipack-370 (76%)) 100 ml IVPUSH ONETIME [facility] Stop: 07/24/17 05:04 Last Admin: 07/24/17 05:33 Dose: 100 ml Iopamidol (Isovue Multipack-370 (76%)) 100 ml IVPUSH ONETIME [facility] Stop: 07/26/17 15:52 Last Admin: 07/26/17 15:52 Dose: 100 ml Morphine Sulfate (Morphine) 2 mg IVPUSH ONETIME ONE Stop: 07/24/17 04:36 Last Admin: 07/24/17 04:40 Dose: 2 mg Morphine Sulfate (Morphine) 4 mg IVPUSH ONETIME ONE Stop: 07/24/17 10:36 Last Admin: 07/24/17 10:50 Dose: 4 mg Morphine Sulfate (Morphine) 4 mg IVPUSH Q2H PRN PRN Reason: Pain Last Admin: 07/24/17 16:24 Dose: 4 mg Morphine Sulfate (Morphine) 4 mg IVPUSH Q1H PRN PRN Reason: Pain Last Admin: 07/24/17 19:49 Dose: 4 mg Morphine Sulfate (Morphine Automation Control Integrator 30 Mg In 30 Ml) 30 mg IV ASDIRECTED [facility] PRN Reason: Protocol Last Admin: 07/25/17 23:33 Dose: 30 mg Morphine Sulfate (Morphine) 2 mg IVPUSH Q2H PRN PRN Reason: Pain Morphine Sulfate (Morphine) 4 mg IVPUSH Q2H PRN PRN Reason: Pain Morphine Sulfate (Morphine) 4 mg IVPUSH Q2H PRN PRN Reason: Pain Last Admin: 07/26/17 13:46 Dose: 4 mg Morphine Sulfate (Morphine Automation Control Integrator 30 Mg In 30 Ml) 30 mg IV ASDIRECTED [facility] PRN Reason: Protocol Last Admin: 07/26/17 14:35 Dose: 30 mg Morphine Sulfate (Morphine Automation Control Integrator 30 Mg In 30 Ml) 30 mg IV ASDIRECTED [facility] PRN Reason: Protocol Last Admin: 07/28/17 00:35 Dose: 30 mg Ondansetron HCl (Zofran) 8 mg IVPUSH ONETIME ONE Stop: 07/24/17 04:38 Last Admin: 07/24/17 04:46 Dose: 8 mg Ondansetron HCl (Zofran) 4 mg IVPUSH Q4H PRN PRN Reason: Nausea Last Admin: 07/27/17 20:40 Dose: 4 mg Promethazine HCl (Phenergan) 25 mg PO Q6H PRN PRN Reason: Nausea/Vomiting Last Admin: 07/27/17 21:29 Dose: 25 mg - Exam Quality Assessment: Denies: Supplemental Oxygen General: Reports: Alert, Oriented, No Acute Distress HEENT: Reports: Pupils Equal, Pupils Reactive Neck: Reports: Supple Lungs: Reports: Clear to Auscultation, Normal Respiratory Effort Cardiovascular: Reports: Regular Rate, Regular Rhythm GI/Abdominal Exam: Normal Bowel Sounds, Soft, Non-Tender (Female) Exam: Deferred Rectal (Female) Exam: Deferred Back Exam: Reports: Normal Inspection Extremities: No Pedal Edema Skin: Reports: Warm, Dry, Intact Neurological: Reports: No New Focal Deficit Psy/Mental Status: Reports: Alert, Normal Affect *Q Meaningful Use (DIS) - VTE *Q VTE Criteria *Q: - Stroke *Q Stroke Criteria *Q: - AMI *Q AMI Criteria *Q:
== END 2017-07-29 16:45 | disposition home or self-care (01) | DRG 389 ==
LOC: MW.ED 04:26 → MW.MS 06:46
PROVIDERS: ADMIT Internal Medicine; ATTEND Internal Medicine
DX: K56.7 Ileus, unspecified (principal); K57.32 Diverticulitis of large intestine without perforation or abscess without bleeding; R11.2 Nausea with vomiting, unspecified; R10.30 Lower abdominal pain, unspecified; D72.829 Elevated white blood cell count, unspecified; F17.200 Nicotine dependence, unspecified, uncomplicated
CPT/HCPCS: 74178; 80053; 81001; 82150; 83690; 84484; 85025; 87040; 96361; 96372; 96375; 96376; 99285; J1170 ×3; J2270; J2405; J7040 ×2; Q9967; 36415; 74020; 74020-26; 74177; 74177-26; 80048; 83735; 84100; 96365; 99282; A9270-GY; J0744; J1650; J2060; J2274; J2550; J3475; J3480

== ENCOUNTER 2017-09-26 08:12 | Day surgery (SDC) | payer OTHER ==
[~2017-09-26 08:12] MED LIST: Lactated Ringers 1,000 ML IV SCH; Sodium Chloride 0.9% 10 ML Syringe FLUSH PRN; Sodium Chloride 0.9% 2.5 ML Syringe FLUSH PRN
[2017-09-26] MEDS ORDERED: fentaNYL 100 MCG/2 ML SDV ONE (08:20)
[2017-09-26] MEDS ORDERED: Propofol 200 MG/20 ML SDV ONE (08:20)
[2017-09-26] MEDS ORDERED: Midazolam 1 MG/ML 2 ML SDV ONE (08:20)
--- NOTE | 2017-09-26 08:49 | PCM.PREANE ---
Preanesthetic Assessment - Anesthesia/Transfusion/Family Hx Anesthesia History: No Prior Anesthesia Family History of Anesthesia Reaction: No Transfusion History: No Prior Transfusion(s) - Review of Systems General: No Symptoms Pulmonary: No Symptoms Cardiovascular: No Symptoms Gastrointestinal: No Symptoms Neurological: No Symptoms Other: Reports: None - Physical Assessment NPO Status Date: 09/25/17 (clear liq at 0500 today) Height: 1.73 m Weight: 89.811 kg ASA Class: 1 Mental Status: Alert & Oriented x3 Airway Class: Mallampati = 1 Dentition: Reports: Normal Dentition ROM/Head Extension: Full Lungs: Clear to Auscultation, Normal Respiratory Effort Cardiovascular: Regular Rate, Regular Rhythm - Lab Values: Laboratory Last Values Urine HCG, Qual NEGATIVE (NEGATIVE) 09/26/17 08:14 - Allergies Allergies/Adverse Reactions: Allergies Allergy/AdvReac Type Severity Reaction Status Date / Time No Known Allergies Allergy Verified 07/24/17 04:37 - Anesthesia Plan Pre-Op Medication Ordered: None - Acknowledgements Anesthesia Type Planned: MAC Pt an Appropriate Candidate for the Planned Anesthesia: Yes Alternatives and Risks of Anesthesia Discussed w Pt/Guardian: Yes Pt/Guardian Understands and Agrees with Anesthesia Plan: Yes PreAnesthesia Questionnaire HEENT History: Reports: None Cardiovascular History: Reports: None Respiratory History: Reports: None Gastrointestinal History: Reports: Diverticulosis, Other (See Below) Other Gastrointestinal History: hx diverticulititis Genitourinary History: Reports: None NURSES' AIDE History: Reports: Musculoskeletal History: Reports: None Neurological History: Reports: None Psychiatric History: Reports: None Endocrine/Metabolic History: Reports: None Hematologic History: Reports: None Immunologic History: Reports: None Oncologic (Cancer) History: Reports: None Dermatologic History: Reports: None - Infectious Disease History Infectious Disease History: Reports: Chicken Pox - Past Surgical History Head Surgeries/Procedures: Reports: None HEENT Surgical History: Reports: LASIK - SUBSTANCE USE Smoking Status *Q: Current Every Day Smoker Tobacco Use Within Last Twelve Months: Cigarettes Second Hand Smoke Exposure: Yes Recreational Drug Use History: No - HOME MEDS Home Medications: Home Meds Ethinyl Estradiol/Drospirenone [Fabby 28 Tablet] 1 tab PO ASDIRECTED 09/23/17 [ History] Psyllium Husk [Fiber] 1 tab PO DAILY 09/23/17 [History] - CURRENT (IN HOUSE) MEDS Current Meds: Current Medications Lactated Ringer's (Ringers, Lactated) 1,000 mls @ 125 mls/hr IV ASDIRECTED FELECIA Last Admin: 09/26/17 08:40 Dose: 125 mls/hr Sodium Chloride (Saline Flush) 10 ml FLUSH ASDIRECTED PRN PRN Reason: Keep Vein Open Sodium Chloride (Saline Flush) 2.5 ml FLUSH ASDIRECTED PRN PRN Reason: Keep Vein Open Sodium Chloride (Saline Flush) 10 ml FLUSH ASDIRECTED PRN PRN Reason: Keep Vein Open Sodium Chloride (Saline Flush) 2.5 ml FLUSH ASDIRECTED PRN PRN Reason: Keep Vein Open Discontinued Medications Fentanyl (Sublimaze) Confirm Administered Dose 100 mcg .ROUTE .STK-MED ONE Stop: 09/26/17 08:21 Midazolam HCl (Versed 1 Mg/Ml) Confirm Administered Dose 2 mg .ROUTE .STK-MED ONE Stop: 09/26/17 08:21 Propofol (Diprivan 20 Ml) Confirm Administered Dose 200 mg .ROUTE .STK-MED ONE Stop: 09/26/17 08:21
--- NOTE | 2017-09-26 11:17 | PCM.POSTAN ---
POST ANESTHESIA ASSESSMENT - MENTAL STATUS Mental Status: Alert, Oriented - RESPIRATORY Respiratory Status: Respiratory Rate WNL, Airway Patent, O2 Saturation Stable - CARDIOVASCULAR CV Status: Pulse Rate WNL, Blood Pressure Stable - GASTROINTESTINAL GI Status: No Symptoms - POST OP HYDRATION Hydration Status: Adequate & Stable
--- NOTE | 2017-09-26 11:17 | PCM48HPAN ---
Post Anesthesia Note - EVALUATION WITHIN 48HRS OF ANESTHETIC Vital Signs in Normal Range: Yes Patient Participated in Evaluation: Yes Respiratory Function Stable: Yes Airway Patent: Yes Cardiovascular Function Stable: Yes Hydration Status Stable: Yes Pain Control Satisfactory: Yes Nausea and Vomiting Control Satisfactory: Yes Mental Status Recovered: Yes
--- NOTE | 2017-09-26 11:43 | PCM.OPNOTE ---
- General Post-Op/Procedure Note Date of Surgery/Procedure: 09/26/17 Operative Procedure(s): Diagnostic colonoscopy Findings: Diverticulosis and non-specific scattered inflammation of the sigmoid colon Pre Op Diagnosis: diverticulitis Post-Op Diagnosis: Diverticulosis, non-specific colitis Anesthesia Technique: [facility] [place] Primary Surgeon: Makenna Valentin Condition: Good Free Text/Narrative:: Intake & Output 09/25/17 09/26/17 09/26/17 22:59 06:59 14:59 Intake Total 1100 Balance 1100
[2017-09-26 12:37] VITALS: BP 131/84
--- NOTE | 2017-09-26 16:58 | OR ---
SURGEON: MAKENNA VALENTIN MD DATE OF PROCEDURE: 09/26/2017 PREOPERATIVE DIAGNOSIS: History of diverticulitis. POSTOPERATIVE DIAGNOSES: 1. Diverticulosis. 2. Nonspecific colitis of the sigmoid colon. PROCEDURE PERFORMED: Diagnostic colonoscopy. ENDOSCOPIST: Makenna Valentin MD. ANESTHESIA: MAC. INSTRUMENT USED: Olympus colonoscope. EXTENT OF EXAM: To the cecum. PREPARATION: Good. LIMITATIONS: None. INDICATIONS: The patient is a 42-year-old female, who was admitted earlier this fall with her first episode of diverticulitis. Since then, her bowel habits have been slowly improving. The decision was made to perform a diagnostic colonoscopy now that we are 2 months out to rule out any other pathologic disease that may have caused her inflammation. The patient and I discussed the procedure as well as expected perioperative course. We discussed the risks, including bleeding, infection, or damage to surrounding structures, including perforation. The patient verbalized understanding and wishes to proceed. PROCEDURE IN DETAIL: The patient was brought into the endoscopy suite and placed in a left lateral decubitus position. A time-out was completed verifying the patient's name, age, date of , allergies, and procedure to be performed. Monitored anesthesia care was induced and continuous oxygen was provided via nasal cannula throughout the procedure. After adequate sedation was achieved, a digital rectal exam was performed. This exam was within normal limits. A well-lubricated colonoscope was inserted into the rectum and advanced under direct visualization to the level of cecum. Cecum was identified by both visual and anatomic landmarks. A photograph was taken of the cecal cap. The scope was then fully withdrawn while examining the color, texture, anatomy, and integrity of the mucosa from the cecum to the anal canal. The patient was found to have diverticulosis within the descending and sigmoid colon. There were areas of nonspecific colonic inflammation scattered throughout the sigmoid colon. Three to 4 biopsies of these termite control representative areas of inflammation were taken and sent to pathology labeled as sigmoid colon biopsies. There was no ulceration or fistulas noted. The scope was then brought into the rectum and retroflexed to allow visualization of the anal canal opening. This appeared normal and a photograph was taken. The scope was then straightened out and removed from the patient. The cecum to anus time was 10 minutes. The patient tolerated the procedure well and was taken to PACU in stable condition. ENDOSCOPIC DIAGNOSES: 1. Diverticulosis. 2. Nonspecific inflammation of the sigmoid colon. RECOMMENDATIONS: Follow up in clinic in 2 weeks. MCKAY WELDON /[id number]
== END 2017-09-26 11:10 | disposition home or self-care (01) ==
LOC: MW.SDS 08:12
PROVIDERS: ATTEND Surgery
DX: K57.30 Diverticulosis of large intestine without perforation or abscess without bleeding (principal); K52.9 Noninfective gastroenteritis and colitis, unspecified; F17.200 Nicotine dependence, unspecified, uncomplicated
CPT/HCPCS: 45380; 81025; J2250; J3010; J7120; 00810; 88305; J2704

== ENCOUNTER 2021-02-07 20:46 | Emergency (ER) | payer OTHER ==
[2021-02-07] MEDS ORDERED: Sodium Chloride 0.9% 2.5 ML Syringe FLUSH PRN (21:22)
[2021-02-07] MEDS ORDERED: Sodium Chloride 0.9% 10 ML Syringe FLUSH PRN (21:22)
[2021-02-07] MEDS ORDERED: Pantoprazole 40 MG in Sodium Chloride 0.9% 10 ML IV ONE (21:22)
[2021-02-07] MEDS ORDERED: Ondansetron 4 MG/2 ML SDV IVPUSH ONE (21:31)
[2021-02-07 21:45] LABS: POTASSIUM,K 3.7 mmol/L (3.5-5.1)
--- NOTE | 2021-02-07 22:05 | CR ---
INDICATION: Epigastric pain TECHNIQUE: Chest radiograph 1 view COMPARISON: None FINDINGS: Moderate degradation of image quality noted due to body habitus. Mediastinum: The mediastinum is normal in appearance. The heart silhouette is normal in size and morphology. Lung: Both lungs are unremarkable in appearance. No sign of pleural effusion seen. No pneumothorax is identified. Bone and Soft tissue: Unremarkable for age. IMPRESSION: 1. No acute cardiopulmonary disease is seen. Dictated by: Speedy Perez MD @ 02/07/2021 22:04:34 (Electronically Signed)
[2021-02-07 23:11] VITALS: BP 96/51; PULSE 72
[2021-02-07] MEDS ORDERED: Iopamidol 755 MG/ML 500 ML Multipack Bottle IVPUSH STA (23:13)
--- NOTE | 2021-02-07 23:39 | CT ---
INDICATION: Abdominal pain TECHNIQUE: Axial images were obtained from the diaphragm to the pubic symphysis. Reformats were obtained in the coronal and sagittal plane. IV Contrast: 100 cc Isovue 370 Oral Contrast: None COMPARISON: Abdomen and pelvis CT 07/26/2017 FINDINGS: Lower chest: Unremarkable. Liver: Normal in contour with focal fat adjacent to the falciform ligament. Hypodense lesion measuring 5 millimeters within segment 8, too small for characterization. Gallbladder and bile ducts: Unremarkable. No stones or inflammation. No biliary dilatation. Spleen: Unremarkable. Normal in size without mass. Pancreas: Unremarkable. No mass or inflammation. Adrenal glands: Unremarkable. No nodules. Kidneys: Unremarkable. No masses, stones, or hydronephrosis. Vasculature: Unremarkable. GI tract: The stomach is unremarkable. No dilated loops of large or small intestine through normal appendix. Fluid noted within the colon mild colonic diverticulosis. Pelvis: Unremarkable. Bones: Unremarkable for age. IMPRESSION: No dilated bowel or localized inflammation. Fluid noted within the colon which can be seen in enteritis/diarrheal illness. Please note that all CT scans at this facility use dose modulation, iterative reconstruction, and/or weight-based dosing when appropriate to reduce radiation dose to as low as reasonably achievable. Dictated by Jn Austin MD @ Feb 07 2021 11:31PM Signed by Dr. Jn Austin @ Feb 07 2021 11:38PM
[2021-02-08] MEDS ORDERED: fentaNYL 50 MCG/ML SDV IVPUSH ONE (00:01)
[2021-02-08] MEDS ORDERED: Amoxicillin/Clavulanate K 875-125 MG Tab PO ONE (00:11)
--- NOTE | 2021-02-08 00:37 | EDM.PDOC ---
ED HPI GENERAL MEDICAL PROBLEM - General Chief Complaint: Gastrointestinal Problem Stated Complaint: VOMITING Time Seen by Provider: 02/07/21 21:02 - History of Present Illness INITIAL COMMENTS - FREE TEXT/NARRATIVE: History of present illness: He had sudden onset of epigastric pain tonight. She is vomiting a great deal. There is no blood in the vomitus is yellow. She has had bowel movements. Review of systems: As per history of present illness and below otherwise all systems reviewed and negative. Past medical history: As per history of present illness and as reviewed below otherwise noncontributory. Surgical history: As per history of present illness and as reviewed below otherwise noncontributory. Social history: No reported history of drug or alcohol abuse. Family history: As per history of present illness and as reviewed below otherwise noncontributory. Physical exam: Constitutional - well developed, well-nourished and in no acute distress HEENT - normocephalic, no evidence of trauma - external nose and mouth normal - no mass in neck and no JVD - mucosae moist EYES - full EOM, PERRL, no icterus - no evidence of inflammation, injection, or drainage Respiratory - no respiratory distress, equal bilateral expansion, lungs clear to auscultation and no abnormal lung sounds Cardiovascular - Regular Rhythm with S1 and S2 appreciated and no murmur, gallop or rub. GI -significant tenderness in the epigastrium. Abdomen soft without distension or organomegaly - normal bowel sounds - no guard or rebound Musculoskeletal no gross deformity of long bones or joints - no tenderness, swelling or edema Neurologic - Alert and oriented times four - CN II-XII grossly intact - motor sensory and coordination symmetrically normal Psychiatric - appropriate mood and affect with normal thought content Hematologic - No petechiae or purpura - mucosa appropriate color and sclera not pale - normal nail bed color and refill Integument - no rash or evidence of trauma - normal turgor Diagnostics: [] Therapeutics: [] Impression: [] Plan: [] Definitive disposition and diagnosis as appropriate pending reevaluation and review of above. Abdomen Pain Score (Numeric/FACES): 10 - Related Data Allergies Allergy/AdvReac Type Severity Reaction Status Date / Time No Known Allergies Allergy Verified 02/07/21 21:08 Home Meds: Home Meds Acetaminophen/HYDROcodone [Sebastian 325-10 MG] 1 tab PO Q6H PRN #14 tablet 02/08/21 [Rx] Amoxicillin/Potassium Clav [Augmentin 875-125 Tablet] 1 each PO Q8HR #30 tablet 02/08/21 [Rx] Past Medical History HEENT History: Reports: None Cardiovascular History: Reports: None Respiratory History: Reports: None Gastrointestinal History: Reports: Diverticulosis, Other (See Below) Other Gastrointestinal History: hx diverticulititis Genitourinary History: Reports: None CLERICAL COORDINATOR History: Reports: Musculoskeletal History: Reports: None Neurological History: Reports: None Psychiatric History: Reports: None Endocrine/Metabolic History: Reports: None Insulin Pump Model and Corrosion Technician: None Hematologic History: Reports: None Immunologic History: Reports: None Oncologic (Cancer) History: Reports: None Dermatologic History: Reports: None - Infectious Disease History Infectious Disease History: Reports: Chicken Pox - Past Surgical History Head Surgeries/Procedures: Reports: None HEENT Surgical History: Reports: CLARKE Social & Family History - Family History Family Medical History: No Pertinent Family History - Caffeine Use Caffeine Use: Reports: Coffee - Recreational Drug Use Recreational Drug Use: No - Living Situation & Occupation Living situation: Reports: Occupation: Employed ED ROS GENERAL - Review of Systems Review Of Systems: Comprehensive ROS is negative, except as noted in HPI. ED EXAM, GENERAL - Physical Exam Exam: See Below Free Text/Narrative:: My physical exam is in the HPI Course - Vital Signs Text/Narrative:: She was not much help. She did however have diverticulosis. With the white count and severe illness I decided to treat with antibiotics for early diverticulitis. Last Recorded V/S: Last Vital Signs Temp 36.0 C L 02/07/21 21:00 Pulse 72 02/07/21 23:00 Resp 18 02/07/21 23:00 BP 96/51 L 02/07/21 23:00 Pulse Ox 97 02/07/21 23:00 - Orders/Labs/Meds Orders: Active Orders 24 hr Category Date Time Status Sodium Chloride 0.9% [Saline Flush] Med 02/07/21 21:22 Active 10 ml FLUSH ASDIRECTED PRN Sodium Chloride 0.9% [Saline Flush] Med 02/07/21 21:22 Active 2.5 ml FLUSH ASDIRECTED PRN Saline Lock Insert [OM.PC] Stat Oth 02/07/21 21:22 Ordered Medication Orders Sodium Chloride (Sodium Chloride 0.9% 10 Ml Syringe) 10 ml FLUSH ASDIRECTED PRN PRN Reason: Keep Vein Open Last Admin: 02/07/21 21:37 Dose: 10 ml Documented by: [id number] Sodium Chloride (Sodium Chloride 0.9% 2.5 Ml Syringe) 2.5 ml FLUSH ASDIRECTED PRN PRN Reason: Keep Vein Open Last Admin: 02/07/21 21:37 Dose: 2.5 ml Documented by: [id number] Labs: Laboratory Tests 02/07/21 02/07/21 02/07/21 Range/Units 21:00 21:00 23:30 WBC 14.42 H (4.0-11.0) K/uL RBC 5.14 (4.30-5.90) M/uL Hgb 16.4 H (12.0-16.0) g/dL Hct 45.2 (36.0-46.0) % MCV 87.9 (80.0-98.0) fL MCH 31.9 (27.0-32.0) pg MCHC 36.3 (31.0-37.0) g/dL RDW Std Deviation 40.6 (28.0-62.0) fl RDW Coeff of Nessa 13 (11.0-15.0) % Plt Count 362 (150-400) K/uL MPV 9.80 (7.40-12.00) fL Neut % (Auto) 76.8 (48.0-80.0) % Lymph % (Auto) 16.9 (16.0-40.0) % Martin % (Auto) 5.5 (0.0-15.0) % Eos % (Auto) 0.6 (0.0-7.0) % Baso % (Auto) 0.2 (0.0-1.5) % Neut # (Auto) 11.1 H (1.4-5.7) K/uL Lymph # (Auto) 2.4 (0.6-2.4) K/uL Martin # (Auto) 0.8 (0.0-0.8) K/uL Eos # (Auto) 0.1 (0.0-0.7) K/uL Baso # (Auto) 0.0 (0.0-0.1) K/uL Nucleated RBC % 0.0 /100WBC Nucleated RBCs # 0 K/uL Sodium 140 (136-145) mmol/L Potassium 3.7 (3.5-5.1) mmol/L Chloride 103 (98-107) mmol/L Carbon Dioxide 23.0 (21.0-32.0) mmol/L BUN 17 (7.0-18.0) mg/dL Creatinine 1.1 H (0.6-1.0) mg/dL Est Cr Clr Drug Dosing 63.78 mL/min Estimated GFR (MDRD) 53.2 ml/min Glucose 129 H (74-106) mg/dL Calcium 10.0 (8.5-10.1) mg/dL Total Bilirubin 0.4 (0.2-1.0) mg/dL AST 21 (15-37) IU/L ALT 33 (14-63) IU/L Alkaline Phosphatase 107 (46-116) U/L Total Protein 8.5 H (6.4-8.2) g/dL Albumin 4.3 (3.4-5.0) g/dL Globulin 4.2 H (2.6-4.0) g/dL Albumin/Globulin Ratio 1.0 (0.9-1.6) Lipase 136 (73-393) U/L Urine Color YELLOW Urine Appearance CLEAR Urine pH 6.5 (5.0-8.0) Ur Specific [place] <= 1.005 (1.001-1.035) Urine Protein NEGATIVE (NEGATIVE) mg/dL Urine Glucose (UA) NEGATIVE (NEGATIVE) mg/dL Urine Ketones NEGATIVE (NEGATIVE) mg/dL Urine Occult Blood NEGATIVE (NEGATIVE) Urine Nitrite NEGATIVE (NEGATIVE) Urine Bilirubin NEGATIVE (NEGATIVE) Urine Urobilinogen 0.2 (<2.0) EU/dL Ur Leukocyte Esterase NEGATIVE (NEGATIVE) Meds: Medications Generic Name Dose Route Start Last Admin Trade Name Freq PRN Reason Stop Dose Admin Sodium Chloride 10 ml 02/07/21 21:22 02/07/21 21:37 Sodium Chloride 0.9% 10 Ml Syringe FLUSH 10 ml ASDIRECTED PRN Administration Keep Vein Open Sodium Chloride 2.5 ml 02/07/21 21:22 02/07/21 21:37 Sodium Chloride 0.9% 2.5 Ml Syringe FLUSH 2.5 ml ASDIRECTED PRN Administration Keep Vein Open Discontinued Medications Generic Name Dose Route Start Last Admin Trade Name Guerda PRN Reason Stop Dose Admin Amoxicillin/Clavulanate Potassium 1 tab 02/08/21 00:11 Amoxicillin/Clavulanate K 875-125 Mg Tab PO 02/08/21 00:12 ONETIME ONE Fentanyl 50 mcg 02/08/21 00:01 Fentanyl 50 Mcg/Ml Sdv IVPUSH 02/08/21 00:02 ONETIME ONE Pantoprazole Sodium 40 mg/ 10 mls @ 300 mls/hr 02/07/21 21:22 02/07/21 21:34 Sodium Chloride IV 02/07/21 21:23 300 mls/hr NOW ONE Administration Iopamidol 100 ml 02/07/21 23:13 02/07/21 23:14 Iopamidol 755 Mg/Ml 500 Ml Multipack Bottle IVPUSH 02/07/21 23:14 100 ml ONETIME STA Administration Ondansetron HCl 4 mg 02/07/21 21:31 02/07/21 21:34 Ondansetron 4 Mg/2 Ml Sdv IVPUSH 02/07/21 21:32 4 mg ONETIME ONE Administration Departure - Departure Time of Disposition: 00:37 Disposition: Home, Self-Care 01 Condition: Good Clinical Impression: Gastroenteritis, Diverticulitis - Discharge Information Instructions: Diverticulitis, [id number] Referrals: PCP,None [Primary Care Provider] - Forms: ED Department Discharge Additional Instructions: [facility] - Primary Care [address] [place] [address] [place] [address] The following information is given to patients seen in the emergency department who are being discharged to home. This information is to outline your options for follow-up care. We provide all patients seen in our emergency department with a follow-up referral. The need for follow-up, as well as the timing and circumstances, are variable depending upon the specifics of your emergency department visit. If you don't have a primary care physician on staff, we will provide you with a referral. We always advise you to contact your personal physician following an emergency department visit to inform them of the circumstance of the visit and for follow-up with them and/or the need for any referrals to a consulting specialist. The emergency department will also refer you to a specialist when appropriate. This referral assures that you have the opportunity for follow-up care with a specialist. All of these measure are taken in an effort to provide you with optimal care, which includes your follow-up. Under all circumstances we always encourage you to contact your private physician who remains a resource for coordinating your care. When calling for follow-up care, please make the office aware that this follow-up is from your recent emergency room visit. If for any reason you are refused follow-up, please contact the [facility] Emergency Department at and asked to speak to the emergency department charge nurse. Sepsis Event Note (ED) - Evaluation Sepsis Screening Result: No Definite Risk - Focused Exam Vital Signs: Vital Signs Temp Pulse Resp BP Pulse Ox 02/07/21 23:00 72 18 96/51 L 97 02/07/21 21:00 36.0 C L 69 18 108/60 98 - My Orders Last 24 Hours: My Active Orders 02/07/21 21:22 Sodium Chloride 0.9% [Saline Flush] 10 ml FLUSH ASDIRECTED PRN Sodium Chloride 0.9% [Saline Flush] 2.5 ml FLUSH ASDIRECTED PRN Saline Lock Insert [OM.PC] Stat - Assessment/Plan Last 24 Hours: My Active Orders 02/07/21 21:22 Sodium Chloride 0.9% [Saline Flush] 10 ml FLUSH ASDIRECTED PRN Sodium Chloride 0.9% [Saline Flush] 2.5 ml FLUSH ASDIRECTED PRN Saline Lock Insert [OM.PC] Stat
== END 2021-02-08 00:44 | disposition home or self-care (01) ==
LOC: MW.ED 20:46
DX: K52.9 Noninfective gastroenteritis and colitis, unspecified (principal); K57.92 Diverticulitis of intestine, part unspecified, without perforation or abscess without bleeding
CPT/HCPCS: 36415; 71045; 74177; 80053; 81003; 83690; 85025; 96374; 96375; 99284; A9270; C9113; J2405; J3010; Q9967

== ENCOUNTER 2022-07-20 08:37 | Day surgery (SDC) | payer OTHER ==
[~2022-07-20 08:37] MED LIST changes: +Acetaminophen 1,000 MG in Premix Bag 1 BAG IV ONE; +Albuterol 0.083% 2.5 MG/3 ML Neb Soln NEB PRN; +HYDROmorphone 1 MG/ML Syringe IVPUSH PRN; +Metoclopramide 10 MG/2 ML SDV IVPUSH PRN; +Naloxone 0.4 MG/ML SDV IVPUSH PRN; +Ondansetron 4 MG/2 ML SDV IVPUSH PRN; -Sodium Chloride 0.9% 10 ML Syringe FLUSH PRN; -Sodium Chloride 0.9% 2.5 ML Syringe FLUSH PRN; +ceFAZolin 2 GM in Premix Bag 1 BAG IV ONE; +fentaNYL 50 MCG/ML SDV IVPUSH PRN
[2022-07-20] MEDS ORDERED: Propofol 200 MG/20 ML SDV ONE (09:40)
[2022-07-20] MEDS ORDERED: fentaNYL 100 MCG/2 ML SDV ONE ×2 (09:40→10:40)
[2022-07-20] MEDS ORDERED: Lidocaine 2% 5 ML SDV ONE (09:41)
[2022-07-20] MEDS ORDERED: Ondansetron 4 MG/2 ML SDV ONE ×2 (09:45→10:48)
[2022-07-20] MEDS ORDERED: Glycopyrrolate 0.2 MG/ML SDV ONE (09:45)
[2022-07-20] MEDS ORDERED: Dexmedetomidine 200 MCG/2 ML SDV ONE (09:45)
[2022-07-20] MEDS ORDERED: Water For Injection, Sterile 20 ML ONE (09:45)
[2022-07-20] MEDS ORDERED: Bupivacaine 0.5% 30 ML SDV ONE (09:50)
[2022-07-20] MEDS ORDERED: Dexamethasone 4 MG/ML 5 ML MDV ONE (10:39)
[2022-07-20] MEDS ORDERED: Ketorolac 30 MG/ML SDV ONE (10:48)
[2022-07-20] MEDS ORDERED: Sugammadex Sodium 200 MG/2 ML VIAL ONE (10:48)
[2022-07-20] MEDS ORDERED: Phenylephrine HCl In 0.9% NaCl 1 MG/10 ML Vial ONE (10:48)
[2022-07-20 11:48] VITALS: PULSE 50
[2022-07-20 13:34] VITALS: BP 140/68
== END 2022-07-20 12:45 | disposition home or self-care (01) ==
LOC: MW.SDS 08:37
PROVIDERS: ATTEND Surgery
DX: R22.41 Localized swelling, mass and lump, right lower limb (principal); G47.00 Insomnia, unspecified; F17.210 Nicotine dependence, cigarettes, uncomplicated; K57.30 Diverticulosis of large intestine without perforation or abscess without bleeding; E66.9 Obesity, unspecified; Z68.31 Body mass index [BMI] 31.0-31.9, adult; Z91.030 Bee allergy status; Z79.899 Other long term (current) drug therapy; Z98.890 Other specified postprocedural states
CPT/HCPCS: 11402; J0131; J0690; J1100; J1885; J2405; J2704; J3010; J3490; J7120; 00400